=== PATIENT | female | born 1975 | race Caucasian/White ===

== ENCOUNTER 2017-12-11 10:01 | Inpatient (IN) | payer MEDICAID ==
[2017-12-11] VITALS (11 sets, daily range): BP systolic 112–154; BP diastolic 69–92
[~2017-12-11] VITALS: Ht 154.9 cm; Wt 78.6 kg
[2017-12-11] MEDS ORDERED: normal saline 1000ML IV soln IV ONE ×2 (10:30→11:25)
[2017-12-11] MEDS ORDERED: ipratropium/albuterol 3ml nebule NEB ONE (10:30)
[2017-12-11 10:48] LABS: HEMATOCRIT 34.1 % (35.0-45.0); MEAN CORPUSCULAR HEMOGLOBIN 23.3 PG (27.0-31.0); MEAN CORPUSCULAR HGB CONC 32.1 % (33.0-36.5); MEAN CORPUSCULAR VOLUME 72.6 FL (78-98); MEAN PLATELET VOLUME 8.1 FL (7.4-10.4); PLATELET COUNT 369 X10'3 (140-440); RED CELL DISTRIBUTION WIDTH 21.5 % (11.5-14.5); WHITE BLOOD COUNT 17.5 X10'3 (4.5-11.0)
[2017-12-11 10:58] LABS: INR 1.3 INR; PARTIAL THROMBOPLASTIN TIME 33 SECONDS (22-32); PROTHROMBIN TIME 12.9 SECONDS (9.0-12.0)
[2017-12-11 11:07] LABS: ANISOCYTOSIS 3+; MICROCYTOSIS 2+; PLATELET ESTIMATE NORMAL; TOTAL CELLS COUNTED 100
[2017-12-11 11:08] LABS: ACANTHOCYTES FEW; BURR CELLS 1+; POLYCHROMASIA FEW; TARGET CELLS FEW
[2017-12-11 11:11] LABS: ALANINE AMINOTRANSFERASE 23 U/L (12-78); ALBUMIN 2.2 G/DL (3.4-5.0); ALBUMIN/GLOBULIN RATIO 0.4 (1.1-1.5); ALKALINE PHOSPHATASE 139 IU/L (46-116); ANION GAP 17 (8-16); ASPARTATE AMINO TRANSFERASE 48 U/L (10-37); BILIRUBIN,TOTAL 1.2 MG/DL (0.1-1.0); BLOOD UREA NITROGEN 44 MG/DL (7-18); BUN/CREATININE RATIO 26.7 (6.6-38.0); CALCIUM 8.9 MG/DL (8.5-10.1); CHLORIDE 104 MMOL/L (99-107); CREATININE 1.65 MG/DL (0.40-0.90); GLUCOSE 77 MG/DL (70-104); POTASSIUM 4.4 MMOL/L (3.5-5.1); SODIUM 138 MMOL/L (135-145); TOTAL PROTEIN 7.1 G/DL (6.4-8.2); TROPONIN I < 0.04 NG/ML (0.0-0.05); eGFR 34 ML/MIN
[2017-12-11] MEDS ORDERED: normal saline 1000ML IV soln IVB ONE ×2 (11:20→13:30)
[2017-12-11] MEDS ORDERED: levoFLOXACIN-Levaquin 750MG/D5 150 ML IV STA (11:22)
[2017-12-11] MEDS ORDERED: azithromycin/NS 500mg/250ml 250 ML IV ONE (11:25)
[2017-12-11] MEDS ORDERED: methylPREDNISolone sod succ 125mg/2ml vial IV ONE (11:25)
[2017-12-11 11:56] LABS: ABG BASE EXCESS -12.7 mmol/L (-2.0-3.0); ABG HCO3 13.6 mmol/L (22.0-26.0); ABG OXYGEN SATURATION 86.7 % (95-98); ABG PCO2 (T) 32.3 mmHg (32.0-45.0); ABG PH (T) 7.241 (7.350-7.450); ABG PO2 (T) 61.9 mmHg (83-108); ALLEN'S TEST Positive; FCOHb 1.1 % (0.5-1.5); FLOW 15 L/min; FMetHb 0.1 % (0.3-1.12); FO2Hb 85.7 % (94-100); TOTAL HEMOGLOBIN 10.1 G/dl (12.0-16.0)
[2017-12-11] MEDS ORDERED: NO HOME MEDS (11:59)
[2017-12-11] MEDS ORDERED: LORazepam 2 mg/ml vial IV ONE ×2 (12:00→12:50)
[2017-12-11] MEDS ORDERED: propofol 1000mg/100ml bottle 100 ML IV ONE ×2 (13:16→17:54)
[2017-12-11] MEDS ORDERED: oseltamivir phos 75mg capsule PO ONE (13:35)
[2017-12-11] MEDS ORDERED: ondansetron/PF 4mg/2ml inj IV PRN (13:40)
[2017-12-11] MEDS ORDERED: cefTRIAXone 1g/NS 100ml IVPB 100 ML IV ONE (13:40)
[2017-12-11] MEDS ORDERED: morphine 4 MG/ML inj SYRINge IV PRN (13:40)
[2017-12-11] MEDS ORDERED: acetaminophen 325mg tablet PO PRN ×2 (13:40)
[2017-12-11] MEDS ORDERED: midazolam 2 mg/2 ml injection IV ONE ×2 (13:40→20:00)
[2017-12-11] MEDS: levoFLOXACIN-Levaquin 500mg/D5 100 ML IV SCH (13:40)
[2017-12-11] MEDS ORDERED: fentaNYL/PF 50MCG/1 ML 2ML syringe IV PRN ×3 (13:40→20:00)
[2017-12-11] MEDS ORDERED: potassium Cl 20 mEq SR tablet PO PRN ×2 (13:40)
[2017-12-11] MEDS ORDERED: ipratropium/albuterol 3ml nebule NEB PRN (13:40)
[2017-12-11] MEDS ORDERED: magnesium hydroxide 30ml (MOM) UD suspension PO PRN (13:40)
[2017-12-11 14:15] LABS: ABG BASE EXCESS -16.8 mmol/L (-2.0-3.0); ABG HCO3 15.7 mmol/L (22.0-26.0); ABG OXYGEN SATURATION 80.1 % (95-98); ABG PCO2 (T) 74.1 mmHg (32.0-45.0); ABG PH (T) 6.941 (7.350-7.450); ABG PO2 (T) 67.2 mmHg (83-108); FCOHb 0.8 % (0.5-1.5); FMetHb 0.2 % (0.3-1.12); FO2Hb 79.3 % (94-100); MINUTE VOLUME 6 L/min; PATIENT TEMPERATURE 36.7; PEEP 5 cm H2O; RESPIRATORY RATE 14 b/min; RESPIRATORY RATE (OBSERVED) 14 b/min; TIDAL VOLUME 450 mL; TOTAL HEMOGLOBIN 10.6 G/dl (12.0-16.0)
[2017-12-11] MEDS ORDERED: rocuronium 10mg/ml inj IV ONE (15:00)
[2017-12-11] MEDS ORDERED: etomidate 2mg/ml inj. ONE (15:00)
[2017-12-11] MEDS ORDERED: sod chloride 0.9% 10ml flush syringe IV ONE (15:00)
[2017-12-11 15:05] LABS: CLARITY,URINE CLEAR (Clear); COLOR,URINE YELLOW (Yellow); GLUCOSE, URINE NEGATIVE (Neg); KETONES,URINE NEGATIVE (Neg); LEUKOCYTE ESTERASE ,URINE NEGATIVE (Neg); NITRITES, URINE NEGATIVE (Neg); OCCULT BLOOD,URINE TRACE-INTACT (Neg); PH,URINE 5.5 (4.8-8.0); PROTEIN,URINE 30 mg/dl (Neg)
[2017-12-11 15:16] LABS: UA COLLECTION TYPE OTHER; URINE AMPHETAMINE SCREEN POSITIVE (Neg); URINE BARBITUATE SCREEN NEGATIVE (Neg); URINE BENZODIAZEPINES SCREEN NEGATIVE (Neg); URINE CANNABINOID SCREEN POSITIVE (Neg); URINE COCAINE SCREEN NEGATIVE (Neg); URINE METHADONE SCREEN NEGATIVE (Neg); URINE OPIATE SCREEN NEGATIVE (Neg); URINE PHENCYCLIDINE SCREEN NEGATIVE (Neg)
[2017-12-11 15:18] LABS: BACTERIA,URINE NONE SEEN /HPF (Neg); HYALINE CASTS 0-3 /LPF (NEGATIVE); MUCUS STRANDS FEW /LPF (Neg); RBC,URINE 0-2 /HPF (0-2); SQUAMOUS EPITHELIAL CELL,UR NONE SEEN /LPF (FEW); WBC,URINE NONE SEEN /HPF (0-4)
[2017-12-11] MEDS ORDERED: VECuronium br 10mg inj. IV ONE (16:35)
[2017-12-11] MEDS: normal saline 1000ml 1,000 ML IV SCH (16:45)
[2017-12-11 17:36] LABS: ABG BASE EXCESS -11.9 mmol/L (-2.0-3.0); ABG HCO3 17.7 mmol/L (22.0-26.0); ABG OXYGEN SATURATION 86.3 % (95-98); ABG PCO2 (T) 59.2 mmHg (32.0-45.0); ABG PH (T) 7.098 (7.350-7.450); ABG PO2 (T) 69.5 mmHg (83-108); FCOHb 1.1 % (0.5-1.5); FMetHb 0.2 % (0.3-1.12); FO2Hb 85.2 % (94-100); MINUTE VOLUME 9 L/min; PATIENT TEMPERATURE 37.8; PEEP 7 cm H2O; RESPIRATORY RATE 20 b/min; RESPIRATORY RATE (OBSERVED) 19 b/min; TIDAL VOLUME 450 mL; TOTAL HEMOGLOBIN 11.3 G/dl (12.0-16.0)
[2017-12-11] MEDS ORDERED: sodium bicarbonate (8.4%) 1 mEq/ml syringe IV ONE (17:55)
[2017-12-11 18:11] LABS: OXYGEN SATURATION (MIXED VEN) 66.1 % (60-80); PO2 MIXED VENOUS (TEMP COR) 49.4 mmHg (35-46)
[2017-12-11] MEDS ORDERED: midazolam 100mg in NS 100ml 100 ML IV PRN (20:00)
[2017-12-11 20:01] LABS: ABG BASE EXCESS -7.5 mmol/L (-2.0-3.0); ABG HCO3 20.5 mmol/L (22.0-26.0); ABG OXYGEN SATURATION 93.6 % (95-98); ABG PCO2 (T) 55.9 mmHg (32.0-45.0); ABG PH (T) 7.188 (7.350-7.450); ABG PO2 (T) 85.4 mmHg (83-108); FCOHb 1.1 % (0.5-1.5); FMetHb 0.1 % (0.3-1.12); FO2Hb 92.5 % (94-100); MINUTE VOLUME 10 L/min; PATIENT TEMPERATURE 38.1; PEEP 18 cm H2O; RESPIRATORY RATE 26 b/min; RESPIRATORY RATE (OBSERVED) 26 b/min; TIDAL VOLUME 350 mL
[2017-12-11] MEDS: furosemide 40mg/4ml inj IV PRN (20:15)
[2017-12-11] MEDS: midazolam 100mg in NS 100ml 100 ML IV PRN (20:40)
[2017-12-11] MEDS: FENTANYL-0.9 % NACL/PF 100 ML IV PRN (20:40)
[2017-12-11] MEDS: methylPREDNISolone sod succ 125mg/2ml vial IV SCH (21:17)
[2017-12-11] MEDS: pantoprazole 40 MG vial IV SCH (21:17)
[2017-12-11] MEDS ORDERED: dextrose 50%-water 50ml dispensing syringe IV ONE (21:24)
[2017-12-11 22:43] LABS: ALANINE AMINOTRANSFERASE 29 U/L (12-78); ALBUMIN 1.9 G/DL (3.4-5.0); ALBUMIN/GLOBULIN RATIO 0.4 (1.1-1.5); ALKALINE PHOSPHATASE 125 IU/L (46-116); ANION GAP 11 (8-16); ASPARTATE AMINO TRANSFERASE 53 U/L (10-37); BILIRUBIN,TOTAL 0.9 MG/DL (0.1-1.0); BLOOD UREA NITROGEN 42 MG/DL (7-18); BUN/CREATININE RATIO 37.8 (6.6-38.0); CALCIUM 7.8 MG/DL (8.5-10.1); CHLORIDE 110 MMOL/L (99-107); CREATININE 1.11 MG/DL (0.40-0.90); GLUCOSE 102 MG/DL (70-104); MAGNESIUM 1.9 MG/DL (1.5-2.4); SODIUM 142 MMOL/L (135-145); TOTAL CARBON DIOXIDE 20.6 MMOL/L (24-32); TOTAL PROTEIN 6.5 G/DL (6.4-8.2); eGFR 54 ML/MIN
[2017-12-11] MEDS ORDERED: vancomycin/NS 1 GM ADD-VANTAGE 250 ML IV ONE (23:45)
[2017-12-12] VITALS (24 sets, daily range): BP systolic 100–140; BP diastolic 60–85
[2017-12-12] MEDS: furosemide 40mg/4ml inj IV PRN ×2 (00:10→04:13)
[2017-12-12 02:06] LABS: OXYGEN SATURATION (MIXED VEN) 88.7 % (60-80); PO2 MIXED VENOUS (TEMP COR) 57.4 mmHg (35-46)
[2017-12-12] MEDS: midazolam 100mg in NS 100ml 100 ML IV PRN ×3 (02:39→23:28)
[2017-12-12] MEDS: methylPREDNISolone sod succ 125mg/2ml vial IV SCH ×4 (02:39→20:10)
[2017-12-12 02:53] LABS: INR 1.2 INR
[2017-12-12 02:56] LABS: BASOPHILS % (AUTO) 0.2 % (0-1); EOSINOPHILS # (AUTO) 0.3 X10'3 (0-0.9); EOSINOPHILS % (AUTO) 1.2 % (0-6); HEMATOCRIT 28.6 % (35.0-45.0); HEMOGLOBIN 9.1 g/dl (12.0-16.0); LYMPHOCYTES # (AUTO) 1.4 X10'3 (1.1-4.8); LYMPHOCYTES % (AUTO) 6.6 % (21-51); MEAN CORPUSCULAR HEMOGLOBIN 23.2 PG (27.0-31.0); MEAN CORPUSCULAR HGB CONC 31.8 % (33.0-36.5); MEAN CORPUSCULAR VOLUME 73.1 FL (78-98); MEAN PLATELET VOLUME 8.6 FL (7.4-10.4); MONOCYTES # (AUTO) 0.6 X10'3 (0-0.9); MONOCYTES % (AUTO) 2.8 % (2-12); NEUTROPHILS # (AUTO) 19.3 X10'3 (1.8-7.7); NEUTROPHILS % (AUTO) 89.2 % (42-75); PLATELET COUNT 353 X10'3 (140-440); RED BLOOD COUNT 3.91 X10'6 (4.20-5.60); RED CELL DISTRIBUTION WIDTH 19.4 % (11.5-14.5); WHITE BLOOD COUNT 21.6 X10'3 (4.5-11.0)
[2017-12-12] MEDS: normal saline 1000ml 1,000 ML IV SCH ×2 (02:59→17:08)
[2017-12-12 03:18] LABS: ALBUMIN 1.8 G/DL (3.4-5.0); ANION GAP 13 (8-16); BLOOD UREA NITROGEN 42 MG/DL (7-18); BUN/CREATININE RATIO 33.6 (6.6-38.0); CALCIUM 7.8 MG/DL (8.5-10.1); CHLORIDE 111 MMOL/L (99-107); CREATININE 1.25 MG/DL (0.40-0.90); GLUCOSE 87 MG/DL (70-104); MAGNESIUM 1.8 MG/DL (1.5-2.4); POTASSIUM 4.5 MMOL/L (3.5-5.1); SODIUM 144 MMOL/L (135-145); TOTAL CARBON DIOXIDE 20.4 MMOL/L (24-32); eGFR 47 ML/MIN
[2017-12-12 03:46] LABS: ABG OXYGEN SATURATION 99.3 % (95-98); ABG PCO2 (T) 37.6 mmHg (32.0-45.0); ABG PH (T) 7.364 (7.350-7.450); ABG PO2 (T) 157.5 mmHg (83-108); FCOHb 0.6 % (0.5-1.5); FMetHb 0.1 % (0.3-1.12); FO2Hb 98.6 % (94-100); MINUTE VOLUME 10 L/min; PATIENT TEMPERATURE 36.9; PEEP 14 cm H2O; RESPIRATORY RATE 26 b/min; RESPIRATORY RATE (OBSERVED) 26 b/min; TIDAL VOLUME 350 mL; TOTAL HEMOGLOBIN 9.6 G/dl (12.0-16.0)
[2017-12-12 04:55] LABS: ANISOCYTOSIS 2+; PLATELET ESTIMATE NORMAL; TOTAL CELLS COUNTED 100
[2017-12-12 04:56] LABS: MICROCYTOSIS 1+
[2017-12-12 04:57] LABS: BURR CELLS FEW; POLYCHROMASIA 1+; TARGET CELLS FEW
[2017-12-12] MEDS: pantoprazole 40 MG vial IV SCH ×2 (07:53→20:10)
[2017-12-12] MEDS: levoFLOXACIN-Levaquin 500mg/D5 100 ML IV SCH (07:53)
[2017-12-12] MEDS: enoxaparin 40mg/0.4ml syringe SQ SCH (07:54)
[2017-12-12] MEDS ORDERED: pneumococcal 23-VAL P-sac vacc 25 mcg/0.5ml vial IMVAC ONE (10:00)
[2017-12-12 10:21] LABS: ABG BASE EXCESS -3.1 mmol/L (-2.0-3.0); ABG HCO3 21.2 mmol/L (22.0-26.0); ABG OXYGEN SATURATION 97.4 % (95-98); ABG PCO2 (T) 34.7 mmHg (32.0-45.0); ABG PH (T) 7.403 (7.350-7.450); ABG PO2 (T) 96.7 mmHg (83-108); FCOHb 0.5 % (0.5-1.5); FMetHb 0.3 % (0.3-1.12); FO2Hb 96.6 % (94-100); MINUTE VOLUME 11 L/min; PEEP 10 cm H2O; RESPIRATORY RATE 26 b/min; RESPIRATORY RATE (OBSERVED) 26 b/min; TIDAL VOLUME 350 mL; TOTAL HEMOGLOBIN 9.5 G/dl (12.0-16.0)
[2017-12-12] MEDS: vancomycin inj 1,250 MG in normal saline 250ml IV soln 250 ML IV SCH (11:57)
[2017-12-12] MEDS: FENTANYL-0.9 % NACL/PF 100 ML IV PRN (12:46)
[2017-12-12 13:51] LABS: OXYGEN SATURATION (MIXED VEN) 73.6 % (60-80); PO2 MIXED VENOUS (TEMP COR) 41.2 mmHg (35-46)
[2017-12-12] MEDS: mineral oil/petrolatum ophthal oint EACHEYE SCH ×2 (16:27→20:10)
[2017-12-12 19:35] LABS: OXYGEN SATURATION (MIXED VEN) 71.9 % (60-80); PO2 MIXED VENOUS (TEMP COR) 42.8 mmHg (35-46)
[2017-12-12 19:41] LABS: ABG BASE EXCESS -3.3 mmol/L (-2.0-3.0); ABG HCO3 21.3 mmol/L (22.0-26.0); ABG OXYGEN SATURATION 93.4 % (95-98); ABG PCO2 (T) 36.7 mmHg (32.0-45.0); ABG PH (T) 7.382 (7.350-7.450); ABG PO2 (T) 74.8 mmHg (83-108); FCOHb 0.4 % (0.5-1.5); FMetHb 0.2 % (0.3-1.12); FO2Hb 92.8 % (94-100); MINUTE VOLUME 10 L/min; PATIENT TEMPERATURE 37.2; PEEP 10 cm H2O; RESPIRATORY RATE 26 b/min; RESPIRATORY RATE (OBSERVED) 26 b/min; TIDAL VOLUME 350 mL; TOTAL HEMOGLOBIN 9.3 G/dl (12.0-16.0)
[2017-12-12] MEDS ORDERED: mineral oil/petrolatum ophthal oint EACHEYE SCH (20:00)
[2017-12-13] VITALS (24 sets, daily range): BP systolic 112–140; BP diastolic 65–84
[2017-12-13] MEDS: vancomycin inj 1,250 MG in normal saline 250ml IV soln 250 ML IV SCH (00:31)
[2017-12-13] MEDS: FENTANYL-0.9 % NACL/PF 100 ML IV PRN ×3 (00:32→17:21)
[2017-12-13] MEDS: mineral oil/petrolatum ophthal oint EACHEYE SCH ×4 (02:20→20:59)
[2017-12-13] MEDS: methylPREDNISolone sod succ 125mg/2ml vial IV SCH ×4 (02:20→20:59)
[2017-12-13 03:25] LABS: HEMOGLOBIN 8.2 g/dl (12.0-16.0); MEAN CORPUSCULAR HGB CONC 31.4 % (33.0-36.5); MEAN CORPUSCULAR VOLUME 73.2 FL (78-98); MEAN PLATELET VOLUME 8.4 FL (7.4-10.4); PLATELET COUNT 258 X10'3 (140-440); RED BLOOD COUNT 3.55 X10'6 (4.20-5.60); RED CELL DISTRIBUTION WIDTH 21.8 % (11.5-14.5); WHITE BLOOD COUNT 24.1 X10'3 (4.5-11.0)
[2017-12-13 03:35] LABS: ALBUMIN 1.6 G/DL (3.4-5.0); ANION GAP 10 (8-16); BLOOD UREA NITROGEN 52 MG/DL (7-18); BUN/CREATININE RATIO 45.6 (6.6-38.0); CALCIUM 8.7 MG/DL (8.5-10.1); CHLORIDE 114 MMOL/L (99-107); CREATININE 1.14 MG/DL (0.40-0.90); GLUCOSE 95 MG/DL (70-104); MAGNESIUM 2.3 MG/DL (1.5-2.4); POTASSIUM 4.3 MMOL/L (3.5-5.1); SODIUM 148 MMOL/L (135-145); TOTAL CARBON DIOXIDE 23.6 MMOL/L (24-32); eGFR 52 ML/MIN
[2017-12-13 03:50] LABS: ABG BASE EXCESS -2.4 mmol/L (-2.0-3.0); ABG HCO3 21.7 mmol/L (22.0-26.0); ABG OXYGEN SATURATION 96.5 % (95-98); ABG PCO2 (T) 33.9 mmHg (32.0-45.0); ABG PH (T) 7.423 (7.350-7.450); ABG PO2 (T) 88.2 mmHg (83-108); FCOHb 0.5 % (0.5-1.5); FMetHb 0.1 % (0.3-1.12); FO2Hb 95.9 % (94-100); MINUTE VOLUME 10 L/min; PATIENT TEMPERATURE 36.7; PEEP 10 cm H2O; RESPIRATORY RATE 26 b/min; RESPIRATORY RATE (OBSERVED) 26 b/min; TIDAL VOLUME 350 mL
[2017-12-13 03:55] LABS: OXYGEN SATURATION (MIXED VEN) 68.5 % (60-80); PO2 MIXED VENOUS (TEMP COR) 37.4 mmHg (35-46)
[2017-12-13 04:05] LABS: ANISOCYTOSIS 3+; BURR CELLS FEW; INR 1.1 INR; MICROCYTOSIS 1+; NUCLEATED RED BLOOD CELLS 1 /100WBC (0-0); PLATELET ESTIMATE NORMAL; PROTHROMBIN TIME 10.9 SECONDS (9.0-12.0); TARGET CELLS FEW; TOTAL CELLS COUNTED 100
[2017-12-13] MEDS: pantoprazole 40 MG vial IV SCH (07:36)
[2017-12-13] MEDS: levoFLOXACIN-Levaquin 500mg/D5 100 ML IV SCH (07:36)
[2017-12-13] MEDS: enoxaparin 40mg/0.4ml syringe SQ SCH (07:36)
[2017-12-13] MEDS: midazolam 100mg in NS 100ml 100 ML IV PRN ×2 (08:44→17:21)
[2017-12-13 09:20] LABS: ABG BASE EXCESS -1.2 mmol/L (-2.0-3.0); ABG HCO3 23.3 mmol/L (22.0-26.0); ABG PCO2 (T) 38.1 mmHg (32.0-45.0); ABG PH (T) 7.405 (7.350-7.450); ABG PO2 (T) 68.3 mmHg (83-108); FCOHb 0.5 % (0.5-1.5); FMetHb 0.2 % (0.3-1.12); FO2Hb 91.4 % (94-100); PEEP 10 cm H2O; RESPIRATORY RATE 26 b/min; TIDAL VOLUME 350 mL; TOTAL HEMOGLOBIN 8.9 G/dl (12.0-16.0)
[2017-12-13] MEDS ORDERED: FLU VACC QS2017-18 36MOS UP/PF 60 MCG/0.5 ML SYRINGE IMVAC ONE (10:00)
[2017-12-13] MEDS: lactobacillus rhamnosus 10,000 MMU CELLS/CAPSULE PO SCH (20:59)
[2017-12-13] MEDS: normal saline 1000ml 1,000 ML IV SCH (21:22)
[2017-12-13] MEDS ORDERED: VANCOMYCIN LEVEL IV ONE (23:30)
[2017-12-14] VITALS (24 sets, daily range): BP systolic 103–143; BP diastolic 64–92
[2017-12-14] MEDS: FENTANYL-0.9 % NACL/PF 100 ML IV PRN ×3 (01:30→18:03)
[2017-12-14] MEDS: midazolam 100mg in NS 100ml 100 ML IV PRN ×3 (01:31→18:04)
[2017-12-14] MEDS: mineral oil/petrolatum ophthal oint EACHEYE SCH ×4 (02:58→20:54)
[2017-12-14 03:05] LABS: HEMATOCRIT 26.1 % (35.0-45.0); HEMOGLOBIN 8.2 g/dl (12.0-16.0); MEAN CORPUSCULAR HEMOGLOBIN 22.9 PG (27.0-31.0); MEAN CORPUSCULAR HGB CONC 31.4 % (33.0-36.5); MEAN CORPUSCULAR VOLUME 73.1 FL (78-98); MEAN PLATELET VOLUME 8.4 FL (7.4-10.4); PLATELET COUNT 241 X10'3 (140-440); RED BLOOD COUNT 3.58 X10'6 (4.20-5.60); RED CELL DISTRIBUTION WIDTH 21.9 % (11.5-14.5); WHITE BLOOD COUNT 23.4 X10'3 (4.5-11.0)
[2017-12-14 03:10] LABS: ABG BASE EXCESS -2.6 mmol/L (-2.0-3.0); ABG HCO3 21.4 mmol/L (22.0-26.0); ABG OXYGEN SATURATION 96.6 % (95-98); ABG PCO2 (T) 33.2 mmHg (32.0-45.0); ABG PH (T) 7.426 (7.350-7.450); ABG PO2 (T) 91.7 mmHg (83-108); FCOHb 0.1 % (0.5-1.5); FMetHb 0.1 % (0.3-1.12); FO2Hb 96.4 % (94-100); MINUTE VOLUME 10 L/min; PATIENT TEMPERATURE 36.8; PEEP 10 cm H2O; RESPIRATORY RATE 26 b/min; RESPIRATORY RATE (OBSERVED) 26 b/min; TIDAL VOLUME 350 mL; TOTAL HEMOGLOBIN 9.1 G/dl (12.0-16.0)
[2017-12-14 03:21] LABS: PROTHROMBIN TIME 10.4 SECONDS (9.0-12.0)
[2017-12-14 03:25] LABS: ALBUMIN 1.6 G/DL (3.4-5.0); ANION GAP 10 (8-16); BLOOD UREA NITROGEN 64 MG/DL (7-18); BUN/CREATININE RATIO 53.3 (6.6-38.0); CALCIUM 8.7 MG/DL (8.5-10.1); CHLORIDE 116 MMOL/L (99-107); GLUCOSE 124 MG/DL (70-104); MAGNESIUM 2.6 MG/DL (1.5-2.4); PREALBUMIN 6.8 MG/DL (19-36); SODIUM 149 MMOL/L (135-145); TOTAL CARBON DIOXIDE 22.9 MMOL/L (24-32); eGFR 49 ML/MIN
[2017-12-14 04:00] LABS: NUCLEATED RED BLOOD CELLS 2 /100WBC (0-0); TOTAL CELLS COUNTED 100
[2017-12-14 04:01] LABS: ANISOCYTOSIS 3+; MICROCYTOSIS 1+; PLATELET ESTIMATE NORMAL; TARGET CELLS FEW
[2017-12-14] MEDS: lactobacillus rhamnosus 10,000 MMU CELLS/CAPSULE PO SCH ×2 (07:15→20:54)
[2017-12-14] MEDS: methylPREDNISolone sod succ 125mg/2ml vial IV SCH (07:17)
[2017-12-14] MEDS: pantoprazole 40 MG vial IV SCH (07:17)
[2017-12-14] MEDS: enoxaparin 40mg/0.4ml syringe SQ SCH (07:18)
[2017-12-14] MEDS: levoFLOXACIN-Levaquin 500mg/D5 100 ML IV SCH (07:19)
[2017-12-14 10:05] LABS: PO2 MIXED VENOUS (TEMP COR) 37.3 mmHg (35-46)
[2017-12-14] MEDS ORDERED: furosemide 40mg/4ml inj IV ONE (10:50)
[2017-12-14 11:28] LABS: FERRITIN 188 NG/ML (8-252)
[2017-12-14 15:05] LABS: MAGNESIUM 2.4 MG/DL (1.5-2.4); PHOSPHORUS 5.3 MG/DL (2.3-4.5); POTASSIUM 4.8 MMOL/L (3.5-5.1)
[2017-12-14] MEDS: methylPREDNISolone sod succ/PF 40mg inj. IV SCH (20:54)
[2017-12-15] VITALS (22 sets, daily range): BP systolic 116–181; BP diastolic 74–98
[2017-12-15] MEDS: midazolam 100mg in NS 100ml 100 ML IV PRN (01:08)
[2017-12-15] MEDS: FENTANYL-0.9 % NACL/PF 100 ML IV PRN (01:08)
[2017-12-15] MEDS: mineral oil/petrolatum ophthal oint EACHEYE SCH ×4 (02:00→20:50)
[2017-12-15 03:36] LABS: ABG BASE EXCESS -3.5 mmol/L (-2.0-3.0); ABG HCO3 20.1 mmol/L (22.0-26.0); ABG PCO2 (T) 31.9 mmHg (32.0-45.0); ABG PO2 (T) 93.5 mmHg (83-108); ALLEN'S TEST Positive; FCOHb 0.4 % (0.5-1.5); FMetHb 0.1 % (0.3-1.12); FO2Hb 95.5 % (94-100); MINUTE VOLUME 10 L/min; PATIENT TEMPERATURE 37.9; PEEP 8 cm H2O; RESPIRATORY RATE 26 b/min; RESPIRATORY RATE (OBSERVED) 26 b/min; TIDAL VOLUME 350 mL; TOTAL HEMOGLOBIN 9.1 G/dl (12.0-16.0)
[2017-12-15 05:29] LABS: BASOPHILS % (AUTO) 0 % (0-1); EOSINOPHILS % (AUTO) 0 % (0-6); HEMOGLOBIN 8.1 g/dl (12.0-16.0); LYMPHOCYTES # (AUTO) 1.3 X10'3 (1.1-4.8); LYMPHOCYTES % (AUTO) 6.9 % (21-51); MEAN CORPUSCULAR HEMOGLOBIN 22.9 PG (27.0-31.0); MEAN CORPUSCULAR HGB CONC 31.4 % (33.0-36.5); MEAN CORPUSCULAR VOLUME 73.1 FL (78-98); MONOCYTES # (AUTO) 0.2 X10'3 (0-0.9); MONOCYTES % (AUTO) 1.1 % (2-12); NEUTROPHILS # (AUTO) 17.7 X10'3 (1.8-7.7); PLATELET COUNT 244 X10'3 (140-440); RED BLOOD COUNT 3.55 X10'6 (4.20-5.60); RED CELL DISTRIBUTION WIDTH 21.7 % (11.5-14.5); WHITE BLOOD COUNT 19.3 X10'3 (4.5-11.0)
[2017-12-15 05:42] LABS: ALBUMIN 1.6 G/DL (3.4-5.0); ANION GAP 12 (8-16); BLOOD UREA NITROGEN 80 MG/DL (7-18); CALCIUM 8.1 MG/DL (8.5-10.1); CHLORIDE 114 MMOL/L (99-107); CREATININE 1.29 MG/DL (0.40-0.90); GLUCOSE 107 MG/DL (70-104); MAGNESIUM 2.6 MG/DL (1.5-2.4); SODIUM 149 MMOL/L (135-145); eGFR 45 ML/MIN
[2017-12-15 05:58] LABS: PROTHROMBIN TIME 10.7 SECONDS (9.0-12.0)
[2017-12-15 07:54] LABS: BANDS% (MANUAL) 7 % (0-10); LYMPHOCYTES % (MANUAL) 7 % (21-51); METAMYLEOCYTES% (MANUAL) 5 % (0-0); MONOCYTES % (MANUAL) 3 % (2-12); MYELOCYTES % (MANUAL) 2 % (0-0); NEUTROPHILS % (MANUAL) 76 % (42-75); TOTAL CELLS COUNTED 100
[2017-12-15 07:55] LABS: ANISOCYTOSIS 3+; NUCLEATED RED BLOOD CELLS 13 /100WBC (0-0); PLATELET ESTIMATE NORMAL
[2017-12-15 07:56] LABS: TARGET CELLS FEW
[2017-12-15] MEDS ORDERED: furosemide 40mg/4ml inj IV ONE (08:30)
[2017-12-15] MEDS: methylPREDNISolone sod succ/PF 40mg inj. IV SCH ×2 (08:34→20:50)
[2017-12-15] MEDS: pantoprazole 40 MG vial IV SCH (08:35)
[2017-12-15] MEDS: levoFLOXACIN-Levaquin 500mg/D5 100 ML IV SCH (08:37)
[2017-12-15] MEDS: lactobacillus rhamnosus 10,000 MMU CELLS/CAPSULE PO SCH ×2 (08:38→20:50)
[2017-12-15] MEDS: enoxaparin 40mg/0.4ml syringe SQ SCH (08:39)
[2017-12-15] MEDS ORDERED: bisacodyl 10mg suppository rectal RC PRN (11:00)
[2017-12-15] MEDS: metoclopramide 10mg/10 ml UD oral solution PO SCH ×2 (14:29→20:50)
[2017-12-15] MEDS: docusate sodium 100mg/10ml UD cup PO SCH (20:50)
[2017-12-15] MEDS: normal saline 1000ml 1,000 ML IV SCH (20:51)
[2017-12-16] VITALS (24 sets, daily range): BP systolic 101–167; BP diastolic 54–106
[2017-12-16] MEDS: metoclopramide 10mg/10 ml UD oral solution PO SCH ×2 (02:00→08:21)
[2017-12-16] MEDS: mineral oil/petrolatum ophthal oint EACHEYE SCH ×4 (02:00→20:15)
[2017-12-16 02:55] LABS: BASOPHILS % (AUTO) 0.1 % (0-1); EOSINOPHILS # (AUTO) 0.1 X10'3 (0-0.9); EOSINOPHILS % (AUTO) 0.3 % (0-6); HEMATOCRIT 27.1 % (35.0-45.0); HEMOGLOBIN 8.7 g/dl (12.0-16.0); LYMPHOCYTES # (AUTO) 3.1 X10'3 (1.1-4.8); LYMPHOCYTES % (AUTO) 12.2 % (21-51); MEAN CORPUSCULAR HEMOGLOBIN 23.1 PG (27.0-31.0); MEAN CORPUSCULAR VOLUME 72.2 FL (78-98); MEAN PLATELET VOLUME 8.2 FL (7.4-10.4); MONOCYTES # (AUTO) 0.4 X10'3 (0-0.9); MONOCYTES % (AUTO) 1.4 % (2-12); PLATELET COUNT 261 X10'3 (140-440); RED BLOOD COUNT 3.75 X10'6 (4.20-5.60); RED CELL DISTRIBUTION WIDTH 19.8 % (11.5-14.5)
[2017-12-16 02:59] LABS: INR 1.1 INR; PROTHROMBIN TIME 11.2 SECONDS (9.0-12.0)
[2017-12-16 03:01] LABS: ALBUMIN 1.7 G/DL (3.4-5.0); ANION GAP 7 (8-16); BLOOD UREA NITROGEN 58 MG/DL (7-18); BUN/CREATININE RATIO 62.4 (6.6-38.0); CALCIUM 8.2 MG/DL (8.5-10.1); CHLORIDE 115 MMOL/L (99-107); CREATININE 0.93 MG/DL (0.40-0.90); GLUCOSE 101 MG/DL (70-104); MAGNESIUM 2.2 MG/DL (1.5-2.4); POTASSIUM 3.9 MMOL/L (3.5-5.1); SODIUM 149 MMOL/L (135-145); TOTAL CARBON DIOXIDE 26.8 MMOL/L (24-32); eGFR 66 ML/MIN
[2017-12-16 03:06] LABS: WHITE BLOOD COUNT 25.6 X10'3 (4.5-11.0)
[2017-12-16 03:31] LABS: ABG OXYGEN SATURATION 88.7 % (95-98); ABG PCO2 (T) 37.2 mmHg (32.0-45.0); ABG PO2 (T) 63.8 mmHg (83-108); ALLEN'S TEST Positive; FCOHb 0.5 % (0.5-1.5); FMetHb 0.1 % (0.3-1.12); FO2Hb 88.2 % (94-100); PATIENT TEMPERATURE 37.3; PEEP 5 cm H2O; RESPIRATORY RATE 26 b/min; RESPIRATORY RATE (OBSERVED) 28 b/min; TIDAL VOLUME 350 mL; TOTAL HEMOGLOBIN 9.6 G/dl (12.0-16.0)
[2017-12-16] MEDS: FENTANYL-0.9 % NACL/PF 100 ML IV PRN (03:41)
[2017-12-16 04:27] LABS: NUCLEATED RED BLOOD CELLS 3 /100WBC (0-0); TOTAL CELLS COUNTED 100
[2017-12-16 04:28] LABS: ANISOCYTOSIS 2+; PLATELET ESTIMATE NORMAL
[2017-12-16 04:29] LABS: HYPOCHROMASIA 1+; POIKILOCYTOSIS 1+; POLYCHROMASIA 1+
[2017-12-16] MEDS: docusate sodium 100mg/10ml UD cup PO SCH ×2 (08:21→20:15)
[2017-12-16] MEDS: pantoprazole 40 MG vial IV SCH (08:21)
[2017-12-16] MEDS: methylPREDNISolone sod succ/PF 40mg inj. IV SCH ×2 (08:21→20:14)
[2017-12-16] MEDS: lactobacillus rhamnosus 10,000 MMU CELLS/CAPSULE PO SCH ×2 (08:21→20:15)
[2017-12-16] MEDS: enoxaparin 40mg/0.4ml syringe SQ SCH (08:22)
[2017-12-16] MEDS: FLU VACC QS2017-18 36MOS UP/PF 60 MCG/0.5 ML SYRINGE IMVAC ONE ×2 (08:25→14:41)
[2017-12-16] MEDS: levoFLOXACIN-Levaquin 500mg/D5 100 ML IV SCH (08:26)
[2017-12-16] MEDS ORDERED: linezolid 600mg/300ml PREMIX 300 ML IV ONE (09:05)
[2017-12-16] MEDS ORDERED: furosemide 40mg/4ml inj IV ONE (09:10)
[2017-12-16] MEDS ORDERED: morphine 4 MG/ML inj SYRINge IV PRN (09:10)
[2017-12-16 09:29] LABS: CLARITY,URINE SLIGHTLY CLOUDY (Clear); COLOR,URINE YELLOW (Yellow); GLUCOSE, URINE NEGATIVE (Neg); KETONES,URINE NEGATIVE (Neg); LEUKOCYTE ESTERASE ,URINE NEGATIVE (Neg); NITRITES, URINE NEGATIVE (Neg); OCCULT BLOOD,URINE LARGE (Neg); PROTEIN,URINE NEGATIVE (Neg); UROBILINOGEN,URINE 0.2 E.U/dL (0.2-1.0)
[2017-12-16 09:40] LABS: UA COLLECTION TYPE FOLEY CATH
[2017-12-16 09:45] LABS: SQUAMOUS EPITHELIAL CELL,UR FEW /LPF (FEW)
[2017-12-16 09:46] LABS: BACTERIA,URINE FEW /HPF (Neg); RBC,URINE 20-50 /HPF (0-2); WBC,URINE 0-4 /HPF (0-4)
[2017-12-16 10:49] LABS: % IRON SATURATION 18 % (11-46); IRON 57 UG/DL (49-151); TOTAL IRON BINDING CAPACITY 324 UG/DL (259-388)
[2017-12-16 10:55] LABS: FERRITIN 109 NG/ML (8-252)
[2017-12-16] MEDS: midazolam 100mg in NS 100ml 100 ML IV PRN ×2 (11:05→19:26)
[2017-12-16] MEDS ORDERED: magnesium citrate 296ml oral solution PO ONE (14:00)
[2017-12-16] MEDS: morphine 4 MG/ML inj SYRINge IV PRN ×4 (14:40→22:41)
[2017-12-16] MEDS: cefepime 1GM/NS ADD-VANTAGE 100 ML IV SCH (16:38)
[2017-12-16] MEDS: normal saline 1000ml 1,000 ML IV SCH (19:26)
[2017-12-16] MEDS: linezolid 600mg/300ml PREMIX 300 ML IV SCH (20:15)
[2017-12-17] VITALS (24 sets, daily range): BP systolic 104–166; BP diastolic 70–95
[2017-12-17] MEDS: cefepime 1GM/NS ADD-VANTAGE 100 ML IV SCH ×3 (00:41→16:07)
[2017-12-17] MEDS: morphine 4 MG/ML inj SYRINge IV PRN ×3 (01:48→19:15)
[2017-12-17] MEDS: mineral oil/petrolatum ophthal oint EACHEYE SCH ×4 (01:48→19:12)
[2017-12-17 02:36] LABS: ABG BASE EXCESS 1.6 mmol/L (-2.0-3.0); ABG OXYGEN SATURATION 93.7 % (95-98); ABG PCO2 (T) 32.8 mmHg (32.0-45.0); ABG PH (T) 7.496 (7.350-7.450); ALLEN'S TEST Positive; FCOHb 0.5 % (0.5-1.5); FMetHb 0.1 % (0.3-1.12); FO2Hb 93.1 % (94-100); MINUTE VOLUME 10 L/min; PEEP 8 cm H2O; RESPIRATORY RATE 26 b/min; RESPIRATORY RATE (OBSERVED) 26 b/min; TIDAL VOLUME 350 mL; TOTAL HEMOGLOBIN 8.6 G/dl (12.0-16.0)
[2017-12-17] MEDS: midazolam 100mg in NS 100ml 100 ML IV PRN ×2 (03:58→17:58)
[2017-12-17 05:07] LABS: BASOPHILS % (AUTO) 0.2 % (0-1); EOSINOPHILS # (AUTO) 0.5 X10'3 (0-0.9); HEMATOCRIT 25.4 % (35.0-45.0); LYMPHOCYTES # (AUTO) 3.2 X10'3 (1.1-4.8); LYMPHOCYTES % (AUTO) 19.9 % (21-51); MEAN CORPUSCULAR HEMOGLOBIN 22.8 PG (27.0-31.0); MEAN CORPUSCULAR HGB CONC 31.4 % (33.0-36.5); MEAN CORPUSCULAR VOLUME 72.6 FL (78-98); MEAN PLATELET VOLUME 8.2 FL (7.4-10.4); MONOCYTES # (AUTO) 0.5 X10'3 (0-0.9); MONOCYTES % (AUTO) 2.9 % (2-12); PLATELET COUNT 206 X10'3 (140-440); RED CELL DISTRIBUTION WIDTH 21.3 % (11.5-14.5); WHITE BLOOD COUNT 16.1 X10'3 (4.5-11.0)
[2017-12-17 05:17] LABS: ALBUMIN 1.8 G/DL (3.4-5.0); ANION GAP 10 (8-16); BLOOD UREA NITROGEN 41 MG/DL (7-18); BUN/CREATININE RATIO 60.3 (6.6-38.0); CALCIUM 8.1 MG/DL (8.5-10.1); CHLORIDE 110 MMOL/L (99-107); CREATININE 0.68 MG/DL (0.40-0.90); GLUCOSE 96 MG/DL (70-104); MAGNESIUM 1.9 MG/DL (1.5-2.4); POTASSIUM 3.5 MMOL/L (3.5-5.1); SODIUM 146 MMOL/L (135-145); TOTAL CARBON DIOXIDE 26.5 MMOL/L (24-32); eGFR > 90 ML/MIN
[2017-12-17 05:18] LABS: PROTHROMBIN TIME 10.8 SECONDS (9.0-12.0)
[2017-12-17 06:44] LABS: TOTAL CELLS COUNTED 100
[2017-12-17 06:46] LABS: ANISOCYTOSIS 2+; HYPOCHROMASIA 1+; PLATELET ESTIMATE NORMAL; POLYCHROMASIA 1+
[2017-12-17 06:47] LABS: MICROCYTOSIS 1+; TARGET CELLS 1+
[2017-12-17 06:48] LABS: LARGE PLATELETS FEW; SPHEROCYTES 1+
[2017-12-17 06:49] LABS: NUCLEATED RED BLOOD CELLS 2 /100WBC (0-0)
[2017-12-17] MEDS: docusate sodium 100mg/10ml UD cup PO SCH ×2 (07:46→19:12)
[2017-12-17] MEDS: methylPREDNISolone sod succ/PF 40mg inj. IV SCH ×2 (07:46→19:12)
[2017-12-17] MEDS: pantoprazole 40 MG vial IV SCH (07:46)
[2017-12-17] MEDS: lactobacillus rhamnosus 10,000 MMU CELLS/CAPSULE PO SCH ×2 (07:46→19:12)
[2017-12-17] MEDS: enoxaparin 40mg/0.4ml syringe SQ SCH (07:47)
[2017-12-17] MEDS ORDERED: furosemide 40mg/4ml inj IV SCH (08:00)
[2017-12-17] MEDS: linezolid 600mg/300ml PREMIX 300 ML IV SCH ×2 (08:39→19:12)
[2017-12-17] MEDS ORDERED: sodium ferric gluc complex inj 25 MG in normal saline 50ml IV soln 48 ML IV ONE (08:50)
[2017-12-17] MEDS: furosemide 40mg/4ml inj IV SCH (16:07)
[2017-12-17] MEDS: normal saline 1000ml 1,000 ML IV SCH (21:22)
[2017-12-18] VITALS (24 sets, daily range): BP systolic 110–154; BP diastolic 63–93
[2017-12-18] MEDS: furosemide 40mg/4ml inj IV SCH ×3 (00:19→16:49)
[2017-12-18] MEDS: cefepime 1GM/NS ADD-VANTAGE 100 ML IV SCH ×3 (00:20→16:49)
[2017-12-18] MEDS: morphine 4 MG/ML inj SYRINge IV PRN ×2 (00:20→04:21)
[2017-12-18] MEDS: mineral oil/petrolatum ophthal oint EACHEYE SCH ×3 (02:11→08:00)
[2017-12-18 03:26] LABS: ABG BASE EXCESS 5.5 mmol/L (-2.0-3.0); ABG HCO3 28.1 mmol/L (22.0-26.0); ABG OXYGEN SATURATION 92.1 % (95-98); ABG PCO2 (T) 33.4 mmHg (32.0-45.0); ABG PH (T) 7.543 (7.350-7.450); ABG PO2 (T) 64.5 mmHg (83-108); ALLEN'S TEST Positive; FCOHb 0.3 % (0.5-1.5); FMetHb 0.3 % (0.3-1.12); FO2Hb 91.5 % (94-100); PEEP 5 cm H2O; RESPIRATORY RATE 26 b/min; RESPIRATORY RATE (OBSERVED) 30 b/min; TIDAL VOLUME 350 mL; TOTAL HEMOGLOBIN 9.7 G/dl (12.0-16.0)
[2017-12-18] MEDS: midazolam 100mg in NS 100ml 100 ML IV PRN (04:21)
[2017-12-18 05:33] LABS: BASOPHILS % (AUTO) 0.2 % (0-1); EOSINOPHILS # (AUTO) 0.5 X10'3 (0-0.9); EOSINOPHILS % (AUTO) 2.5 % (0-6); LYMPHOCYTES # (AUTO) 2.4 X10'3 (1.1-4.8); LYMPHOCYTES % (AUTO) 11.9 % (21-51); MEAN CORPUSCULAR HEMOGLOBIN 23.1 PG (27.0-31.0); MEAN PLATELET VOLUME 8.3 FL (7.4-10.4); MONOCYTES # (AUTO) 0.7 X10'3 (0-0.9); MONOCYTES % (AUTO) 3.5 % (2-12); NEUTROPHILS # (AUTO) 16.3 X10'3 (1.8-7.7); NEUTROPHILS % (AUTO) 81.9 % (42-75); PLATELET COUNT 232 X10'3 (140-440); RED BLOOD COUNT 3.89 X10'6 (4.20-5.60); RED CELL DISTRIBUTION WIDTH 20.7 % (11.5-14.5)
[2017-12-18 05:40] LABS: PROTHROMBIN TIME 10.3 SECONDS (9.0-12.0)
[2017-12-18 05:54] LABS: ALBUMIN 2.1 G/DL (3.4-5.0); ANION GAP 8 (8-16); BLOOD UREA NITROGEN 40 MG/DL (7-18); CALCIUM 8.5 MG/DL (8.5-10.1); CHLORIDE 104 MMOL/L (99-107); CREATININE 0.69 MG/DL (0.40-0.90); GLUCOSE 91 MG/DL (70-104); MAGNESIUM 2.1 MG/DL (1.5-2.4); POTASSIUM 3.9 MMOL/L (3.5-5.1); SODIUM 141 MMOL/L (135-145); TOTAL CARBON DIOXIDE 28.8 MMOL/L (24-32); eGFR > 90 ML/MIN
[2017-12-18] MEDS: pantoprazole 40 MG vial IV SCH (07:27)
[2017-12-18] MEDS: methylPREDNISolone sod succ/PF 40mg inj. IV SCH ×2 (07:27→21:50)
[2017-12-18] MEDS: enoxaparin 40mg/0.4ml syringe SQ SCH (07:27)
[2017-12-18] MEDS: docusate sodium 100mg/10ml UD cup PO SCH ×2 (07:28→21:50)
[2017-12-18] MEDS: lactobacillus rhamnosus 10,000 MMU CELLS/CAPSULE PO SCH ×2 (07:28→21:50)
[2017-12-18] MEDS: linezolid 600mg/300ml PREMIX 300 ML IV SCH ×2 (07:28→21:50)
[2017-12-18 08:59] LABS: ANISOCYTOSIS 3+; MICROCYTOSIS 2+; NUCLEATED RED BLOOD CELLS 3 /100WBC (0-0); PLATELET ESTIMATE NORMAL; TOTAL CELLS COUNTED 100
[2017-12-18 09:00] LABS: HYPOCHROMASIA 2+; POIKILOCYTOSIS FEW; POLYCHROMASIA 2+; TARGET CELLS 1+
[2017-12-18] MEDS: sodium ferric gluc complex inj 125 MG in normal saline 100ml IV soln 100 ML IV SCH (09:14)
[2017-12-18] MEDS: normal saline 1000ml 1,000 ML IV SCH (21:50)
[2017-12-19] VITALS (14 sets, daily range): BP systolic 111–168; BP diastolic 80–93
[2017-12-19] MEDS: furosemide 40mg/4ml inj IV SCH ×2 (00:18→08:18)
[2017-12-19] MEDS: cefepime 1GM/NS ADD-VANTAGE 100 ML IV SCH ×4 (00:19→23:37)
[2017-12-19 03:10] LABS: BASOPHILS % (AUTO) 0 % (0-1); EOSINOPHILS # (AUTO) 0.5 X10'3 (0-0.9); EOSINOPHILS % (AUTO) 2.7 % (0-6); HEMATOCRIT 31.5 % (35.0-45.0); HEMOGLOBIN 9.8 g/dl (12.0-16.0); LYMPHOCYTES # (AUTO) 1.3 X10'3 (1.1-4.8); LYMPHOCYTES % (AUTO) 7.7 % (21-51); MEAN CORPUSCULAR HEMOGLOBIN 22.9 PG (27.0-31.0); MEAN CORPUSCULAR HGB CONC 31.2 % (33.0-36.5); MEAN CORPUSCULAR VOLUME 73.3 FL (78-98); MONOCYTES # (AUTO) 0.3 X10'3 (0-0.9); MONOCYTES % (AUTO) 1.8 % (2-12); NEUTROPHILS # (AUTO) 15.3 X10'3 (1.8-7.7); NEUTROPHILS % (AUTO) 87.8 % (42-75); PLATELET COUNT 264 X10'3 (140-440); RED CELL DISTRIBUTION WIDTH 21.5 % (11.5-14.5); WHITE BLOOD COUNT 17.4 X10'3 (4.5-11.0)
[2017-12-19 03:18] LABS: ALBUMIN 2.5 G/DL (3.4-5.0); ANION GAP 4 (8-16); BLOOD UREA NITROGEN 28 MG/DL (7-18); BUN/CREATININE RATIO 45.9 (6.6-38.0); CALCIUM 8.4 MG/DL (8.5-10.1); CHLORIDE 102 MMOL/L (99-107); CREATININE 0.61 MG/DL (0.40-0.90); GLUCOSE 116 MG/DL (70-104); MAGNESIUM 2.1 MG/DL (1.5-2.4); POTASSIUM 4.1 MMOL/L (3.5-5.1); PROTHROMBIN TIME 10.4 SECONDS (9.0-12.0); SODIUM 139 MMOL/L (135-145); TOTAL CARBON DIOXIDE 33.1 MMOL/L (24-32); eGFR > 90 ML/MIN
[2017-12-19] MEDS: lactobacillus rhamnosus 10,000 MMU CELLS/CAPSULE PO SCH ×2 (08:18→19:22)
[2017-12-19] MEDS: pantoprazole 40 MG vial IV SCH (08:18)
[2017-12-19] MEDS: docusate sodium 100mg/10ml UD cup PO SCH ×2 (08:18→19:22)
[2017-12-19] MEDS: methylPREDNISolone sod succ/PF 40mg inj. IV SCH (08:18)
[2017-12-19] MEDS: sodium ferric gluc complex inj 125 MG in normal saline 100ml IV soln 100 ML IV SCH (08:18)
[2017-12-19] MEDS: linezolid 600mg/300ml PREMIX 300 ML IV SCH ×2 (08:19→19:23)
[2017-12-19] MEDS: enoxaparin 40mg/0.4ml syringe SQ SCH (08:19)
[2017-12-19] MEDS: normal saline 1000ml 1,000 ML IV SCH (10:36)
[2017-12-20 00:26] VITALS: BP 132/89
[2017-12-20 05:47] LABS: BASOPHILS % (AUTO) 0.1 % (0-1); EOSINOPHILS # (AUTO) 0.7 X10'3 (0-0.9); EOSINOPHILS % (AUTO) 3.6 % (0-6); HEMATOCRIT 28.9 % (35.0-45.0); HEMOGLOBIN 9.3 g/dl (12.0-16.0); LYMPHOCYTES # (AUTO) 2.2 X10'3 (1.1-4.8); LYMPHOCYTES % (AUTO) 11.8 % (21-51); MEAN CORPUSCULAR HEMOGLOBIN 23.6 PG (27.0-31.0); MEAN CORPUSCULAR HGB CONC 32.3 % (33.0-36.5); MEAN PLATELET VOLUME 7.7 FL (7.4-10.4); MONOCYTES # (AUTO) 1.1 X10'3 (0-0.9); MONOCYTES % (AUTO) 5.9 % (2-12); NEUTROPHILS # (AUTO) 14.5 X10'3 (1.8-7.7); NEUTROPHILS % (AUTO) 78.6 % (42-75); PLATELET COUNT 271 X10'3 (140-440); RED BLOOD COUNT 3.96 X10'6 (4.20-5.60); RED CELL DISTRIBUTION WIDTH 21.2 % (11.5-14.5); WHITE BLOOD COUNT 18.4 X10'3 (4.5-11.0)
[2017-12-20 05:58] LABS: PROTHROMBIN TIME 10.3 SECONDS (9.0-12.0)
[2017-12-20 05:59] LABS: ALBUMIN 2.3 G/DL (3.4-5.0); ANION GAP 8 (8-16); BLOOD UREA NITROGEN 22 MG/DL (7-18); BUN/CREATININE RATIO 33.8 (6.6-38.0); CALCIUM 8.3 MG/DL (8.5-10.1); CHLORIDE 102 MMOL/L (99-107); CREATININE 0.65 MG/DL (0.40-0.90); GLUCOSE 92 MG/DL (70-104); MAGNESIUM 2.2 MG/DL (1.5-2.4); POTASSIUM 3.7 MMOL/L (3.5-5.1); SODIUM 140 MMOL/L (135-145); TOTAL CARBON DIOXIDE 30.2 MMOL/L (24-32); eGFR > 90 ML/MIN
[2017-12-20 07:22] VITALS: BP 137/89
[2017-12-20] MEDS ORDERED: pantoprazole 40mg Tablet.DR PO SCH (07:30)
[2017-12-20] MEDS: cefepime 1GM/NS ADD-VANTAGE 100 ML IV SCH (07:34)
[2017-12-20] MEDS: docusate sodium 100mg/10ml UD cup PO SCH (07:35)
[2017-12-20] MEDS: enoxaparin 40mg/0.4ml syringe SQ SCH (07:36)
[2017-12-20] MEDS: lactobacillus rhamnosus 10,000 MMU CELLS/CAPSULE PO SCH (07:36)
[2017-12-20 07:45] LABS: PLATELET ESTIMATE NORMAL
[2017-12-20 07:46] LABS: ANISOCYTOSIS 3+; MICROCYTOSIS 2+
[2017-12-20 07:47] LABS: POIKILOCYTOSIS FEW; POLYCHROMASIA 2+; TARGET CELLS FEW
[2017-12-20] MEDS ORDERED: furosemide 40mg tablet PO SCH (08:00)
[2017-12-20] MEDS ORDERED: predniSONE 20 mg tablet PO SCH (08:30)
[2017-12-20] MEDS: sodium ferric gluc complex inj 125 MG in normal saline 100ml IV soln 100 ML IV SCH (09:06)
[2017-12-20 11:38] VITALS: BP 125/74
[2017-12-20] MEDS ORDERED: LACT1CAP26 PO (11:58)
[2017-12-20] MEDS ORDERED: PRED20TA PO (11:58)
[2017-12-20] MEDS ORDERED: LEVO500T2 PO (11:58)
[2017-12-20] MEDS ORDERED: FURO-150 PO (11:59)
[2017-12-20] MEDS ORDERED: POTA10TA19 PO (12:00)
[2017-12-20] MEDS ORDERED: FAMO-128 PO (12:00)
[2017-12-20] MEDS ORDERED: PRED5TAB PO (13:13)
[2017-12-21] MEDS ORDERED: predniSONE 20 mg tablet PO SCH (08:30)
== END 2017-12-20 13:30 | disposition home or self-care (01) | DRG 720 ==
LOC: ER 10:02 → ED HOLD 13:39 → CICU 2S 14:50 → MED 3N 12-19 10:17
PROVIDERS: ADMIT Internal Medicine Critical Care Medicine; ATTEND Internal Medicine Critical Care Medicine
PROC: 5A1955Z Respiratory Ventilation, Greater than 96 Consecutive Hours (ICD-10-PCS; principal; 2017-12-11)
PROC: 0BH18EZ Insertion of Endotracheal Airway into Trachea, Via Natural or Artificial Opening Endoscopic (ICD-10-PCS; 2017-12-11)
PROC: 02HV33Z Insertion of Infusion Device into Superior Vena Cava, Percutaneous Approach (ICD-10-PCS; 2017-12-11)
DX: A40.3 Sepsis due to Streptococcus pneumoniae (principal); J96.00 Acute respiratory failure, unspecified whether with hypoxia or hypercapnia; J90 Pleural effusion, not elsewhere classified; J13 Pneumonia due to Streptococcus pneumoniae; J91.8 Pleural effusion in other conditions classified elsewhere; N17.9 Acute kidney failure, unspecified; E86.0 Dehydration; B19.20 Unspecified viral hepatitis C without hepatic coma; F15.10 Other stimulant abuse, uncomplicated; E87.0 Hyperosmolality and hypernatremia; E87.70 Fluid overload, unspecified; F99 Mental disorder, not otherwise specified; D50.9 Iron deficiency anemia, unspecified; F17.200 Nicotine dependence, unspecified, uncomplicated; I51.7 Cardiomegaly; J98.11 Atelectasis; Z79.899 Other long term (current) drug therapy; Z79.01 Long term (current) use of anticoagulants; Z79.82 Long term (current) use of aspirin
CPT/HCPCS: 36415; 36569; 36600; 71045; 76937; 80048; 80053; 80202; 80305; 81001; 82728; 82803; 82810; 82948; 83540; 83550; 83605; 83735; 83880; 84100; 84132; 84134; 84484; 85018; 85025; 85610; 85730; 86713; 87040; 87070; 87077; 87088; 87186; 87502; 87503; 93005; 93306; 94003; 94640; 94760; 96361; 96365; 96375; 96376; 97110; 97116; 97162; 99291; A6212; A6213; A6257; A6258; A6402; A6449; C1751; C9113; J0456; J0692; J0696; J1650; J1940; J1956; J2020; J2060; J2250; J2270; J2704; J2916; J2920; J2930; J3370; J3490; J7030; J7040; J7512; J8597; Q2037

== ENCOUNTER 2023-05-29 20:09 | Inpatient (IN) | payer MEDICAID ==
[~2023-05-29] VITALS: Ht 154.9 cm; Wt 71.3 kg
[~2023-05-29 20:09] MED LIST: FAMO-128 PO; FURO-150 PO; LACT1CAP26 PO; NO HOME MEDS; PRED5TAB PO
[2023-05-29 21:22] LABS: BASOPHILS % (AUTO) 0.6 % (0-1); EOSINOPHILS # (AUTO) 0.1 X10'3 (0-0.9); EOSINOPHILS % (AUTO) 1.2 % (0-6); HEMATOCRIT 45.8 % (35.0-45.0); HEMOGLOBIN 15.3 g/dl (12.0-16.0); LYMPHOCYTES # (AUTO) 0.7 X10'3 (1.1-4.8); LYMPHOCYTES % (AUTO) 10.5 % (21-51); MEAN CORPUSCULAR HEMOGLOBIN 32.7 PG (27.0-31.0); MEAN CORPUSCULAR HGB CONC 33.4 g/dL (33.0-36.5); MEAN CORPUSCULAR VOLUME 97.9 FL (78-98); MEAN PLATELET VOLUME 7.8 FL (7.4-10.4); MONOCYTES # (AUTO) 0.6 X10'3 (0-0.9); MONOCYTES % (AUTO) 8.7 % (2-12); NEUTROPHILS # (AUTO) 5.3 X10'3 (1.8-7.7); PLATELET COUNT 139 X10'3 (140-440); RED BLOOD COUNT 4.67 X10'6 (4.20-5.60); RED CELL DISTRIBUTION WIDTH 14.9 % (11.5-14.5); WHITE BLOOD COUNT 6.7 X10'3 (4.5-11.0)
[2023-05-29 21:31] LABS: ALANINE AMINOTRANSFERASE 58 U/L (12-78); ALBUMIN 3.4 G/DL (3.4-5.0); ALBUMIN/GLOBULIN RATIO 0.8 (1.1-1.5); ALKALINE PHOSPHATASE 124 IU/L (46-116); ANION GAP 9 (8-16); ASPARTATE AMINO TRANSFERASE 52 U/L (10-37); BILIRUBIN,TOTAL 1.4 MG/DL (0.1-1.0); BLOOD UREA NITROGEN 27 MG/DL (7-18); BUN/CREATININE RATIO 22.9 (10.0-20.0); CHLORIDE 104 MMOL/L (99-107); CREATININE 1.18 MG/DL (0.40-0.90); GLUCOSE 125 MG/DL (70-104); POTASSIUM 4.7 MMOL/L (3.5-5.1); SODIUM 137 MMOL/L (135-145); TOTAL CARBON DIOXIDE 24.3 MMOL/L (24-32); TOTAL PROTEIN 7.5 G/DL (6.4-8.2); eCRCL 44 ML/MIN; eGFR 49 ML/MIN
[2023-05-29 21:38] LABS: PRO BRAIN NATRIURETIC PEPTIDE 6450 PG/ML (0-125)
[2023-05-30] VITALS (13 sets, daily range): BP systolic 106–142; BP diastolic 67–101; PULSE 67–96; RESP 20–25; TEMP 97.6–100; O2SAT 93–96
[2023-05-30] MEDS ORDERED: morphine 2 MG/ML inj. syringe IV PRN (00:20)
[2023-05-30] MEDS ORDERED: potassium Cl 40MEQ/1/2NS 520ml 520 ML IV PRN (00:20)
[2023-05-30] MEDS ORDERED: potassium Cl 20 mEq SR tablet PO PRN ×2 (00:20)
[2023-05-30] MEDS ORDERED: magnesium 4gm in 100ml NS 100 ML IV PRN (00:20)
[2023-05-30] MEDS ORDERED: ondansetron/PF 4mg/2ml inj IV PRN (00:20)
[2023-05-30] MEDS ORDERED: mag hydrox/Alum hydrox/simeth 30ml oral suspension PO PRN (00:20)
[2023-05-30] MEDS ORDERED: magnesium 2GM in 50ml NS 50 ML IV PRN (00:20)
[2023-05-30] MEDS ORDERED: HYDROcodone/acetaminophen 5mg/325mg tablet PO PRN (00:20)
[2023-05-30] MEDS ORDERED: magnesium hydroxide 30ml (MOM) UD suspension PO PRN (00:20)
[2023-05-30] MEDS ORDERED: magnesium Cl slow-release 64mg tablet PO PRN (00:20)
[2023-05-30] MEDS ORDERED: acetaminophen 325mg tablet PO PRN (00:20)
--- NOTE | 2023-05-30 03:51 | NUR ---
PATIENT IN THE ROOM RESTING WITH NO APPARENT DISTRESS
[2023-05-30] MEDS ORDERED: metoprolol tartrate 1mg/ml inj IV PRN (05:55)
[2023-05-30] MEDS ORDERED: aminophylline 250mg/10ml inj. IV PRN (05:55)
[2023-05-30] MEDS ORDERED: nitroGLYCERIN 0.4mg SUBLingual tab SL PRN (05:55)
[2023-05-30] MEDS ORDERED: regadenoson 0.4mg/5ml syringe IV PRN (05:55)
--- NOTE | 2023-05-30 06:35 | NUR ---
Problems reprioritized. Patient report given, questions answered & plan of care reviewed with CHECO RUIZ.
[2023-05-30] MEDS ORDERED: furosemide 10 MG/1 ML 10ml inj IV SCH (08:00)
[2023-05-30] MEDS ORDERED: K and/or MAG REPLACEMENT MC SCH (08:00)
[2023-05-30] MEDS ORDERED: enoxaparin 40mg/0.4ml syringe SUBCUT SCH (08:00)
[2023-05-30] MEDS ORDERED: docusate sod 100mg capsule PO SCH (08:00)
[2023-05-30] MEDS ORDERED: atorvastatin 20mg tablet PO SCH (08:00)
[2023-05-30] MEDS ORDERED: aspirin 81mg, enteric-coated 1 TAB TABLET.DR PO SCH (08:00)
[2023-05-30 09:03] LABS: MAGNESIUM 2.1 MG/DL (1.5-2.4)
[2023-05-30 09:10] LABS: POTASSIUM 4.6 MMOL/L (3.5-5.1)
[2023-05-30] MEDS ORDERED: ASPI-1071 PO (13:37)
[2023-05-30] MEDS ORDERED: NITR0.4T51 SL (13:37)
[2023-05-30] MEDS ORDERED: ATOR20TA66 PO (13:37)
--- NOTE | 2023-05-30 15:30 | NUR ---
Pt's PIV removed with cannula intact. Pt denies CP, SOB. Pt's O2 removed with O2 sats >92% on RA. Pt's discharge paperwork reviewed and questions answered. Pt in NAD. Pt's at bedside. Pt refused to leave via wheelchair. Pt walked out with who is driving pt home.
== END 2023-05-30 16:09 | disposition home or self-care (01) | DRG 198 ==
LOC: ER 20:09 → ED HOLD 05-30 00:33 → PCU 3S 05-30 03:25
PROVIDERS: ADMIT Internal Medicine; ATTEND Internal Medicine
PROC: 4A02XM4 Measurement of Cardiac Total Activity, External Approach (ICD-10-PCS; principal; 2023-05-30)
PROC: 3E073KZ Introduction of Other Diagnostic Substance into Coronary Artery, Percutaneous Approach (ICD-10-PCS; 2023-05-30)
DX: I24.9 Acute ischemic heart disease, unspecified (principal); J96.00 Acute respiratory failure, unspecified whether with hypoxia or hypercapnia; I50.9 Heart failure, unspecified; I11.0 Hypertensive heart disease with heart failure; K74.60 Unspecified cirrhosis of liver; B19.20 Unspecified viral hepatitis C without hepatic coma; F15.10 Other stimulant abuse, uncomplicated; Z87.891 Personal history of nicotine dependence; Z79.899 Other long term (current) drug therapy; Z90.49 Acquired absence of other specified parts of digestive tract; Z71.51 Drug abuse counseling and surveillance of drug abuser
CPT/HCPCS: 36415; 71045; 78452; 80053; 83735; 83880; 84132; 84484; 85025; 87081; 93005; 93017; 93308; 99285; A9500; G0378; J1650; J1940; J2785

== ENCOUNTER 2025-05-16 00:05 | Inpatient (IN) | payer MEDICAID ==
[2025-05-16] VITALS (13 sets, daily range): BP systolic 105–126; BP diastolic 75–94; PULSE 78–92; RESP 16–23; TEMP 97.9–98.2; O2SAT 90–95
[~2025-05-16] VITALS: Ht 160 cm; Wt 69.7 kg
[~2025-05-16 00:05] MED LIST changes: +ASPI-1071 PO; +ATOR20TA66 PO; +NITR0.4T51 SL
[2025-05-16 00:35] LABS: MEAN PLATELET VOLUME 7.4 FL (7.4-10.4); RED CELL DISTRIBUTION WIDTH 13.7 % (11.5-14.5)
[2025-05-16 00:53] LABS: CREATININE 1.02 MG/DL (0.40-0.90); PRO BRAIN NATRIURETIC PEPTIDE 1742 PG/ML (0-125); TOTAL CARBON DIOXIDE 21.6 MMOL/L (24-32); eCRCL 55 ML/MIN; eGFR 57 ML/MIN
--- NOTE | 2025-05-16 00:55 | RADIOLOGY REPORT ---
CHEST RADIOGRAPH Indication: CP Technique: Single frontal view of the chest was obtained Comparison: DI CHEST,SINGLE VIEW on DOS: 05/29/23 FINDINGS: Lines and Tubes: None Lungs: Mild pulmonary vascular congestion. No focal consolidation. Pleura: No effusion. No pneumothorax. Cardiomediastinal contours: Stable moderate cardiomegaly. Bones: No acute osseous abnormality. IMPRESSION: 1. Mild pulmonary vascular congestion. No focal consolidation. 2. Stable moderate cardiomegaly.
--- NOTE | 2025-05-16 03:55 | Physician Documentation ---
History of Present Illness ~ Chief Complaint: Shortness of Breath Stated Complaint: CHEST PAINS,SOB Time Seen by MD: 03:44 OK to notify your PCP?: Yes Primary Medical Doctor: [facility] Source: patient, RN/MD, RN notes reviewed, old records Mode of Arrival: POV Exam Limitations: no limitations HPI 50 year old female with history of CAD and COPD presents to the emergency department seen in bed 12 for complaints of chest pain that began when trying to sleep tonight. She states that she began to have a squeezing chest pain with shortness of breath and palpitations. She states that she also felt diaphoretic. She states that since she has not been able to make her primary care appointments she has bot been able to get her medications filled and has been without her heart medications for three months. She endorses last using meth one day ago but insists she is decreasing her meth use. Medication Reconciliation Allergies: Coded Allergies: No Known Allergies (Unverified , 08/08/10) Scheduled Aspirin (Ecotrin*), 1 TAB PO DAILY Atorvastatin Calcium (Atorvastatin Calcium), 20 MG PO DAILY Famotidine (Pepcid), 1 TAB PO Q12H Furosemide (Lasix), 1 TAB PO BID Ipratropium/Albuterol Sulfate (Duoneb 2.5-0.5 Mg/3 Ml Soln), 3 ML IH QID Metoprolol Tartrate (Lopressor tablet), 12.5 MG PO BID Potassium Chloride (Potassium Chloride), 1 TAB PO DAILY Salmeterol Xinafoate* (Serevent Diskus*), 1 PUFFS INH Q12H Scheduled PRN Albuterol Sulfate (Albuterol Sulfate), 1 VIAL INH Q4HPRN PRN for wheezing Nitroglycerin SL* (Nitrostat SL*), 0.4 MG SL Q5MIN PRN for chest pain albuterol inhaler (Pro-Air Inhaler), 1-2 PUFFS PO Q4H PRN for shortness of breath, (Reported) Discontinued Medications Home Med List (No Home Medications), (Reported) Discontinued Reason: Other Lactobacillus Rhamnosus (Culturelle), 10,000 MMU PO Q12H Prednisone* (Prednisone*), 1 TAB PO DAILY Tiotropium [place] (Spiriva), 1 CAP INH DAILY, (Reported) Past Medical History Past Medical History: Coronary Artery Disease, COPD Past Surgical History: no surgical history Drug Use: methamphetamine Lives with: Spouse Lives In: Home Review of Systems All Other Systems at this time: Reviewed and Negative ROS As stated above in the HPI, otherwise all systems are reviewed and negative. Physical Exam Vital Signs: RN Vital Signs have been reviewed: Yes, Temperature: 97.5, Source: Temporal, Heart Rate: 88, Respiratory Rate: 14, BP: 131/99, Pulse Oximetry: 92, Weight: 69.700 Oxygen Flow Rate: 0 Pulse Oximetry Reflects: adequate oxygenation Physical Exam General: The patient is well developed, well nourished, nontoxic appearing and is in no acute distress. Skin: [place], warm and dry with no rashes. HEENT: Head was normocephalic and atraumatic. Eyes - pupils equal, round, reactive to light and accommodation. Extraocular movements were intact. Conjunctivae were nonicteric. Ears - bilateral tympanic membranes were normal. The mouth and oropharynx were clear with moist mucous membranes. There were no pharyngeal exudates or erythema. Neck: Supple and nontender. There was no jugular venous distention, lymphadenopathy, thyromegaly or masses. Chest: Crackles noted in the bottom of the lungs. No accessory muscle use. No dullness to percussion. Heart: Rate regular and rhythmic. S1, S2. No murmurs. Palpation of the chest wall was normal. No rubs or thrills. Abdomen: Soft, nontender and nondistended. Positive bowel sounds. No guarding or rebound. No hepatosplenomegaly or palpable masses. Extremities: Trace edema to lower extremities. The patient moves all extremities. Pulses were equal and symmetric. Neurologic: Cranial nerves II-XII were intact. Sensation was intact to light touch throughout. Motor strength was 5/5 in all four extremities. Deep tendon reflexes were intact in both upper and lower extremities. Psychologic: The patient was oriented to person, place and time. The patient demonstrated appropriate judgement and insight. Progress Progress Note 0414: The case was discussed with the hospitalist who was informed on the patients case and kindly agreed to admission. Results/Orders Results/Orders Orders - FILI ZULETA MD Chest,Single View (05/16/25 00:37) Monitor (05/16/25 00:19) Saline Lock (05/16/25 00:19) Oxygen (8/5/25 00:19) Echocardiogram (05/16/25 04:03) Page Hospitalist (05/16/25 04:06) Fill Out Med Reconciliation (05/16/25 04:06) Completed Orders - FILI ZULETA MD Chest,Single View (05/16/25 00:37) Cbc/Diff (05/16/25 00:19) BMP (05/16/25 00:19) PBNP (05/16/25 00:19) Hs Troponin I W Calculations (05/16/25 00:19) Hs Troponin I W Calculations (05/16/25 02:19) Hs Troponin I W Calculations (05/16/25 03:19) Drug Screen, Urine (05/16/25 03:53) Ethanol (05/16/25 00:26) MG (05/16/25 00:26) Echocardiogram (05/16/25 04:03) Aspirin 81mg Chew Tablet (Aspirin 81mg C (05/16/25 04:05) Nitroglycerin 0.2mg/Hour Patch (Nitro-Du (05/16/25 04:05) Carvedilol Tablet (Coreg Tablet) (05/16/25 04:05) Heparin 25,000 Unit/250ml Bag (Heparin 2 (05/16/25 04:05) Pt Inr (05/16/25 04:12) PTT (05/16/25 04:12) Carvedilol Tablet (Coreg Tablet) (05/16/25 04:05) Heparin 10,000 Unit/Ml 1ml (Heparin 10,0 (05/16/25 04:20) Message To Nursing (05/16/25 04:25) Heparin 10,000 Unit/Ml 1ml (Heparin 10,0 (05/16/25 04:25) ALT (05/16/25 00:26) AST (05/16/25 00:26) Hgb A1c (05/16/25 00:26) Lipid Panel (05/16/25 00:26) TSH (05/16/25 00:26) Vital Signs 05/16/25 05/16/25 05/16/25 05/16/25 00:13 02:03 02:51 03:14 Temp 97.5 Pulse 96 92 88 Resp 16 19 23 14 B/P (MAP) 135/100 139/94 (109) 131/99 (110) Pulse Ox 92 92 92 O2 Flow Rate 0 0 0 05/16/25 04:30 Pulse 84 Resp 17 B/P (MAP) 140/98 (112) Pulse Ox 93 O2 Flow Rate 0 Laboratory Tests Test 05/16/25 00:26 05/16/25 02:28 05/16/25 03:26 05/16/25 04:34 White Blood Count 6.3 Red Blood Count 5.06 Hemoglobin 17.0 H Hematocrit 48.6 H Mean Corpuscular Volume 96.1 Mean Corpuscular Hemoglobin 33.6 H Mean Corpuscular Hemoglobin Concent 35.0 Red Cell Distribution Width 13.7 Platelet Count 201 Mean Platelet Volume 7.4 Neutrophils (%) (Auto) 59.1 Lymphocytes (%) (Auto) 27.8 Monocytes (%) (Auto) 7.6 Eosinophils (%) (Auto) 4.8 Basophils (%) (Auto) 0.7 Neutrophils # (Auto) 3.7 Lymphocytes # (Auto) 1.7 Monocytes # (Auto) 0.5 Eosinophils # (Auto) 0.3 Basophils # (Auto) 0.0 CBC Comment Sodium Level 134 L Potassium Level 4.0 Chloride Level 106 Carbon Dioxide Level 21.6 L Anion Gap 6 L Blood Urea Nitrogen 21 H Creatinine 1.02 H Estimated GFR/1.73 m2 57 BUN/Creatinine Ratio 20.6 H Glucose Level 103 Hemoglobin A1c 5.5 Calcium Level 8.6 Magnesium Level 1.8 Aspartate Amino Transf (AST/SGOT) 89 H Alanine Aminotransferase (ALT/SGPT) 87 H Troponin I High Sensitivity 61 *H 70 *H 68 *H Pro-B-Type Natriuretic Peptide 1742 H Albumin 3.5 Triglycerides Level 91 Cholesterol Level 125 LDL Cholesterol 63 HDL Cholesterol 43 Cholesterol/HDL Ratio 2.9 Thyroid Stimulating Hormone (TSH) 4.92 H Chemistry Comments Ethyl Alcohol Level < 10 Troponin I High Sens Percent Delta 14 2 Troponin I Hi Sens Absolute Change 9 -2 Prothrombin Time 11.7 INR International Normalized Ratio 1.2 Activated Partial Thromboplast Time 27 Coagulation Comments Re-Evaluation Re-evaluation : Re-Evaluation: Improved Progress Patient was seen and examined. Patient is given reassurance. Patient has a history of coronary artery disease as well as heart failure. Patient was appearing a bit ill. Laboratory work was obtained placed on monitor tech. Patient also had an echocardiogram ordered by myself because of fluid overload. Patient received aspirin nitroglycerin and to control her hypertension as well as tachycardia relatively speaking in the picture of heart failure patient was given Coreg as well. Later laboratory work shows elevated troponins which was concerning so a heparin bolus and drip was then given. Later additional doses of Coreg was given once again. The hospitalist service was then contacted who kindly agreed to admit the patient for further workup and care. CBC WBC shows a hemoglobin of 17 hematocrit of 48 otherwise within normal limits no left shift. Initial chemistry was within normal limits. Tox screen unfortunately is positive for methamphetamine. Patient's 1st troponins 61 2nd is 70. Chemistry shows a sodium of 134 potassium 4.0 chloride 106 CO2 21.6 with BUN of 21 and creatinine of 1.02. There was some mild prerenal dehydration but also some metabolic acidosis slight hyponatremia as well. Liver function tests shows AST of 89 and ALT of 87 slightly elevated proBNP elevated at 1742. Blood pressure was slightly elevated at 130 5/100 diastolic. Continuous monitor tech interpretation shows normal sinus rhythm heart rate 90s, no ectopy, normal, my interpretation however abnormal for this patient. Pulse oximetry monitor interpretation has a bit low at 92% room air, normal, my interpretation. EKG/XRAY/CT/US/VASC/MRI EKG : Additional Comment 0014: AMEYA Zuleta interpreted EKG to show sinus rhythm at a rate of 91 with a QTc of 503. Nonspecific ST changes with T wave inversions. Chest X-Ray : Additional Comments CHEST RADIOGRAPH Indication: CP Technique: Single frontal view of the chest was obtained Comparison: DI CHEST,SINGLE VIEW on DOS: 05/29/23 FINDINGS: Lines and Tubes: None Lungs: Mild pulmonary vascular congestion. No focal consolidation. Pleura: No effusion. No pneumothorax. Cardiomediastinal contours: Stable moderate cardiomegaly. Bones: No acute osseous abnormality. IMPRESSION: 1. Mild pulmonary vascular congestion. No focal consolidation. 2. Stable moderate cardiomegaly. Electronically Signed by:RUDOLPH TOUSSAINT MD Date & Time: 05/16/25 0052 Heart Score: Heart Score Response (Comments) Value History Highly Suspicious [address]-Deviation 2 Age 45-64 1 Risk Factors >3 or Hx ASHD 2 Troponin >3 x's Normal limit 2 Total 9 Medical Decision Making Additional info obtained from: old records Differential Dx:Considerations: Include: anxiety, asthma, bronchitis, cardiogenic shock, CHF, COPD, dysrhythmia, hypertension, accelerated, hypertension, essential, hypertension, malignant, hyperventilation, hyponatremia, myocardial infarction, panic attack, pneumonia, pneumonitis, pneumothorax, PSVT, pulmonary embolism, respiratory distress, respiratory failure, sinusitis, upper resp. 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 Accelerated hypertension Condition: Fair Referrals: NO PRIMARY CARE PROVIDER (PCP) Prescriptions Potassium Chloride (Potassium Chloride) 10 Meq Tab.prt.sr 1 TAB PO DAILY for 20 Days, #20 TAB 0 Refills Prov: RICK GUZMAN RES 05/18/25 Furosemide (LASIX) 20 Mg Tablet 1 TAB PO BID for 30 Days, #30 TAB Prov: RICK GUZMAN RES 05/18/25 Salmeterol Xinafoate* (Serevent Diskus*) 50 Mcg Disk.w.dev 1 PUFFS INH Q12H for 30 Days, #1 EA Prov: RICK GUZMAN RES 05/18/25 Albuterol Sulfate (Albuterol Sulfate) 2.5 Mg/3 Ml Vial.neb 1 VIAL INH Q4HPRN PRN for wheezing, #150 ML 0 Refills Prov: RICK GUZMAN RES 05/18/25 Metoprolol Tartrate (Lopressor tablet) 25 Mg Tablet 12.5 MG PO BID for 30 Days, #60 TAB Hold for SBP below 100mm Hg Hold for Heart Rate below 60. Prov: RICK GUZMAN RES 05/18/25 Ipratropium/Albuterol Sulfate (Duoneb 2.5-0.5 Mg/3 Ml Soln) 0.5 Mg-3 Mg (2.5 Mg Base)/3 Ml Ampul.neb 3 ML IH QID, #1 ML Prov: RICK GUZMAN RES 05/18/25 Education Educated: Patient, Family Educated regarding: diagnosis, treatment, prognosis, need for follow up Critical Care Note Total Time (mins): 30 Critical Care Note The very real possibility of a deterioration of this patient's condition required the highest level of my preparedness for sudden, emergent intervention. I provided critical care services, which included medication orders, frequent reevaluations of the patient's condition and response to treatment, ordering and reviewing test results, and discussing the case with various consultants. Excludes time spent performing separately billable procedures. The critical care time associated with the care of the patient was 30 minutes. Signature Scribe Signature: Scribed for Fili Zuleta MD by Beena Madden . 05/16/25 04:13 Attestation: The note accurately reflects work and decisions made by me.Fili Zuleta MD 05/16/25 03:55 FILI ZULETA MD May 16, 2025 03:55 BEENA THOMPSON May 16, 2025 04:11
[2025-05-16] MEDS ORDERED: heparin 10,000 units/1 ML INJ IV ONE (04:05)
[2025-05-16 04:13] LABS: ETHANOL < 10 MG/DL (<10)
[2025-05-16] MEDS ORDERED: potassium Cl 40MEQ/1/2NS 520ml 520 ML IV PRN (04:15)
[2025-05-16] MEDS ORDERED: metoprolol tartrate 1mg/ml inj IV PRN (04:15)
[2025-05-16] MEDS ORDERED: magnesium Cl slow-release 64mg tablet PO PRN (04:15)
[2025-05-16] MEDS ORDERED: ondansetron/PF 4mg/2ml inj IV PRN (04:15)
[2025-05-16] MEDS ORDERED: magnesium hydroxide 30ml (MOM) UD suspension PO PRN (04:15)
[2025-05-16] MEDS ORDERED: magnesium sulf-water 2g/50mL 50 ML IV PRN (04:15)
[2025-05-16] MEDS ORDERED: magnesium sulf-water 4G/100mL 100 ML IV PRN (04:15)
[2025-05-16] MEDS ORDERED: aminophylline 250mg/10ml inj. IV PRN (04:15)
[2025-05-16] MEDS ORDERED: potassium Cl 20 mEq SR tablet PO PRN ×2 (04:15)
[2025-05-16] MEDS ORDERED: PERFLUTREN PROTEIN-A MICROSPHR (Optison) 0.22 MG/ML 3ML VIAL IV PRN (04:15)
[2025-05-16 04:53] LABS: APTT 27 SECONDS (22-32); INR 1.2 INR
--- NOTE | 2025-05-16 04:55 | HISTORY AND PHYSICAL-Residence ---
History & Physical Providers to CC Resident Creating Document: NANCE LEANDROHAYDEN ORALIA CC: CHRISSY GLEZ MD ~ History of Present Illness Primary Medical Doctor: [facility] Reason for Admit\Complaint: Shortness of breath History of Present Illness Patient is a 50-year-old female with a history of CHF, CAD, COPD, chronic hepatitis-C, ARORA, and MANJIT who came to the ED due to shortness of breath. Patient reports that for the past 2 weeks of or so she has been experiencing increasing shortness of breath at rest, along with orthopnea and PND. In addition, she reports intermittent chest pain which she has had in the past but has been worsening for the past 2 weeks as well, she describes it at lives sided, squeezing sensation, 5/10 in intensity, nonradiating, intermittent happening at random times, lasting from few minutes up to 10 minutes, she denies aggravating or attenuating factors. Of note, patient reports that since she missed her last appointment with her PCP, she was not able to get refills of her heart failure medications. She also endorses increased alcohol intake for the past days and continuing using meth. Allergies: Coded Allergies: No Known Allergies (Unverified , 08/08/10) Home Medications Home Medications Active Ecotrin* (Aspirin) 81 Mg Tablet.dr 1 Tab PO DAILY 30 Days Nitrostat SL* (Nitroglycerin) 0.4 Mg Tablet 0.4 Mg SL Q5MIN PRN 30 Days Atorvastatin Calcium 20 Mg Tablet 20 Mg PO DAILY 30 Days Prednisone* (Prednisone) 5 Mg Tablet 1 Tab PO DAILY 30 Days Pepcid (Famotidine) 20 Mg Tablet 1 Tab PO Q12H 30 Days Lasix (Furosemide) 20 Mg Tablet 1 Tab PO DAILY 30 Days Culturelle (Lactobacillus Rhamnosus) 1 Each Capsule 10,000 Mmu PO Q12H 15 Days Reported No Home Medications (Home Med List) Each Past Medical History Past Medical History CHF CAD COPD Chronic hepatitis-C Steatohepatitis MANJIT Past Surgical History Surgical History Comment Cholecystectomy Tubal ligation Past Social History Smoking: Quit greater than 1 year Alcohol Use: Heavy Drug Use: Marijuana, Methamphetamine Lives with: Spouse Lives In: Home ROS ROS All systems were reviewed and found negative except for pertinent positives mentioned in HPI Exam Vitals: Vital Signs Date Time Temp Pulse Resp B/P (MAP) Pulse Ox O2 Delivery O2 Flow Rate FiO2 05/16/25 03:14 88 14 131/99 (110) 92 0 05/16/25 00:13 97.5 General: General: awake, alert oriented to place, time, and person HEENT: No pallor present, no icterus, moist mucous membranes Neck: No masses and tenderness Resp: Unlabored. Lungs clear to auscultation bilaterally. Chest: Normal expansion Cardiovascular: Regular Rate and rhythm, normal S1 and S2 without murmur, rub or gallop Abdomen: Soft and nontender, no organomegaly, no guarding and rigidity, bowel sounds present Neuro: No focal weakness in the upper and lower limb muscles, power of the muscles 5/5 bilateral upper and lower extremities, normal reflexes bilaterally. Cranial nerves intact Extremities: Trace lower extremity edema, no cyanosis or clubbing Skin: Warm and Dry. No lesions Psych: Normal affect Diagnostic Data Last Recorded Lab Results: 05/16/25 0026 05/16/25 0026 Diagnostic Data: Laboratory Tests Test 05/16/25 04:34 Coagulation Comments Advance Care Planning Advanced Care plannin - 30 Minutes Additional Plan Patient is a 50-year-old female with a history of CHF, CAD, COPD, chronic hepatitis-C, ARORA, and MANJIT who came to the ED due to shortness of breath. Admitted for evaluation and management of acute on chronic heart failure and NSTEMI versus unstable angina. Chest pain ACS, NSTEMI versus unstable angina Possible type 2 AR Acute on chronic heart failure with preserved ejection fraction Methamphetamine induced cardiomyopathy Heart score: 6 Patient is hemodynamically stable with no significant fluid overload Troponins are mildly elevated but stable Last echocardiogram from 2022 showed EF of 70% with hypokinetic right ventricle Lexiscan from 2022 showed Perfusion defect in the septum at both stress and rest, with greater perfusion defect overall on stress imaging compared to rest. May be partly artifactual, although possibly due to reversible ischemia. Chest x-ray today shows mild pulmonary vascular congestion with cardiomegaly Received Coreg in ED Continue nicotine patch Started on heparin drip in ED Start Lasix 60 mg IV once, then 40 mg IV b.i.d. Pending echocardiogram Pending Lexiscan Cardiology consult in a.m. COPD, not in exacerbation DuoNebs q.4 PRN Chronic hepatitis-C Steatohepatitis Pending med rec Continue monitoring CMP Code Status: Full code DVT prophylaxis: Heparin drip Nutrition: Heart healthy diet. NPO for Lexiscan Prognosis: Guarded Disposition: Admit to PCU with tele monitoring. Pending Lexiscan. Pending echo. Pending cardiology consult Hayden Ayala MD Internal Medicine Resident PGY-2 Plan reviewed with bedside team. Patient seen through remote audiovisual assessment through HIPAA compliant setup. All labs, flowsheets, and images reviewed Cumulative nonprocedural care time spent in directed patient care = 30 min Date of Service: May 16, 2025 Billing Provider: CHRISSY GLEZ MD, LEONARDO LUIS May 16, 2025 04:55 CHRISSY GLEZ MD May 16, 2025 06:44
--- NOTE | 2025-05-16 05:24 | ELECTROCARDIOGRAPH REPORT ---
[facility] Test Date: 2025-05-16 Test Time: 00:14:31 Pat Name: CALE LEDESMA Department: EMERGENCY ROOM Room: [place] [address] Gender: F [employer] Waste Technician: ZAIN : 1975 Requested By: MARLYN STEPHENS Order Number: [id number] Reading MD: Dr. Manolo Stephens Measurements Intervals [place] Rate: 91 P: 60 SD: 172 QRS: 132 QRSD: 119 T: -10 QT: 408 QTc: 503 Interpretive Statements Sinus rhythm LAE, consider biatrial enlargement IRBBB and LPFB Lateral infarct, acute Electronically Signed On 05-16-2025 20:05:[address] Manolo Stephens Please click the below link to view image of tracing.
[2025-05-16] MEDS: furosemide 10 MG/1 ML 10ml inj IV ONE (05:25)
[2025-05-16] MEDS: heparin 10,000 units/1 ML INJ IV ONE (05:37)
[2025-05-16] MEDS: heparin 25,000 UNIT/250ml bag 250 ML IV PRN (05:38)
[2025-05-16] MEDS: MESSAGE TO NURSING IV ONE ×3 (05:39→19:45)
[2025-05-16] MEDS: K and/or MAG REPLACEMENT MC SCH (06:14)
[2025-05-16] MEDS: docusate sod 100mg capsule PO SCH (06:15)
[2025-05-16 07:52] LABS: URINE AMPHETAMINE SCREEN POSITIVE (Neg); URINE BARBITUATE SCREEN NEGATIVE (Neg); URINE BENZODIAZEPINES SCREEN NEGATIVE (Neg); URINE CANNABINOID SCREEN POSITIVE (Neg); URINE COCAINE SCREEN NEGATIVE (Neg); URINE METHADONE SCREEN NEGATIVE (Neg); URINE OPIATE SCREEN NEGATIVE (Neg); URINE PHENCYCLIDINE SCREEN NEGATIVE (Neg)
[2025-05-16] MEDS: regadenoson 0.4mg/5ml syringe IV PRN (09:04)
--- NOTE | 2025-05-16 12:38 | RADIOLOGY REPORT ---
CLINICAL INFORMATION: 50 years old, Female; Angina. TECHNIQUE: 8.7 mCi of technetium 99m sestamibi was infused at rest. Rest SPECT imaging was obtained. Routine protocol for Lexiscan stress study was performed with 0.4 mg of Lexiscan. 35 mCi of techneti um 99m sestamibi was infused. Stress SPECT imaging was obtained. COMPARISON: NM NM LOBO SCAN on DOS: 05/30/23 FINDINGS: Resting heart rate of 82 BPM increased to maximum rate of 88 BPM. Resting blood pressure of 117/79 increased to 127/82. There were no significant ST-T wave EKG changes. There was no chest pain . There is a moderate sized perfusion defect in the inferoseptal and anteroseptal estrella on both stress and rest images, to a greater extent on stress, with extension to portions of the anterior wall on st ress. Possible stress-induced ischemia involving the apical anterior and mid anterior segments. TID r atio is 1.15. Wall motion imaging appears normal. Calculated left ventricular ejection fraction is 58%. IMPRESSION: 1. Perfusion defects in the inferoseptal and anteroseptal estrella on both stress and rest images with e xtension to portions of the anterior wall on stress only. Possible stress-induced ischemia involving the apical anterior and mid anterior segments. Similar findings are seen on the prior examination fr om 2022. 2. Left ventricular ejection fraction is 58%.
[2025-05-16 16:04] LABS: CHOL/HDL RATIO 2.9 (0.00-4.99); LDL CHOLESTEROL 63 MG/DL (50-100)
--- NOTE | 2025-05-16 19:01 | PROGRESS NOTE- Residence ---
Progress Note - Resident Providers to CC Resident Creating Document: RICK GUZMAN RES ~ Antibiotic Timeout Antibiotic Ordered?: No Subjective Patient seen and examined at the bedside denied shortness of breaths chest pain or any complaint Objective Vital Signs Date Time Temp Pulse Resp B/P (MAP) Pulse Ox O2 Delivery O2 Flow Rate FiO2 05/16/25 15:14 97.9 88 22 121/91 (101) 92 Room Air 05/16/25 14:00 0 Result Diagram: 05/16/25 0026 05/16/25 0621 General: Awake and Alert, no acute distress. HEENT: Conjunctiva pink, Sclera clear, Mucus Membranes moist. Neck: Supple without masses and tenderness. Resp: Lungs clear to auscultation bilaterally. Heart: Regular Rate and rhythm, normal S1 and S2 Abdomen: Soft and non tender Extremities: No cyanosis,clubbing or edema. Skin: Warm and Dry. Neurological: Speech is clear, alert, and oriented x 4, no gross neurological deficits Coagulation Studies Laboratory Tests Test 05/16/25 04:34 05/16/25 18:07 Prothrombin Time 11.7 SECONDS (9.0-12.0) INR International Normalized Ratio 1.2 INR Activated Partial Thromboplast Time 27 SECONDS (22-32) Coagulation Comments Plan Plan Patient is a 50-year-old female with a history of CHF, CAD, COPD, chronic hepatitis-C, ARORA, and MANJIT who came to the ED due to shortness of breath. Admitted for evaluation and management of acute on chronic heart failure and NSTEMI versus unstable angina. Chest pain ACS, unstable angina Acute on chronic heart failure with preserved ejection fraction Methamphetamine induced cardiomyopathy Heart score: 6 Patient is hemodynamically stable with no significant fluid overload Troponins are mildly elevated but stable Chest x-ray today shows mild pulmonary vascular congestion with cardiomegaly Last echocardiogram from 2022 showed EF of 70% with hypokinetic right ventricle Lexiscan from 2022 showed Perfusion defect in the septum at both stress and rest, with greater perfusion defect overall on stress imaging compared to rest. May be partly artifactual, although possibly due to reversible ischemia. Received Coreg in ED, Continue nicotine patch Started on heparin drip in ED Start Lasix 60 mg IV once, then 40 mg IV b.i.d. Pending echocardiogram Lexiscan showed: 1. Perfusion defects in the inferoseptal and anteroseptal estrella on both stress and rest images with extension to portions of the anterior wall on stress only. Possible stress-induced ischemia involving the apical anterior and mid anterior segments. Similar findings are seen on the prior examination from 2022. 2. Left ventricular ejection fraction is 58%. Dr. Galvez was informed, pending evaluation We will continue heparin drip Atorvastatin metoprolol and aspirin started COPD, not in exacerbation DuoNebs q.4 PRN Chronic hepatitis-C Steatohepatitis Continue monitoring Code Status: Full code DVT prophylaxis: Heparin drip Nutrition: Heart healthy diet Prognosis: Guarded Date of Service: May 16, 2025 Billing Provider: NICOLE JORGE MD Common Visit Codes: [id number] INP/OBS CARE(HIGH) RICK GUZMAN, RES May 16, 2025 19:01 NICOLE JORGE MD May 17, 2025 08:34
[2025-05-16] MEDS: metoprolol tartrate 12.5mg (1/2 tablet) PO SCH (19:30)
[2025-05-16] MEDS ORDERED: TIOT18CA3 INH (19:43)
[2025-05-16] MEDS ORDERED: ALBU8HFA PO (19:43)
[2025-05-16] MEDS: heparin 10,000 units/1 ML INJ IV PRN (19:49)
[2025-05-17] VITALS (10 sets, daily range): BP systolic 94–121; BP diastolic 68–86; PULSE 74–84; RESP 14–20; TEMP 96.5–98; O2SAT 93–96
[2025-05-17 02:21] LABS: MEAN PLATELET VOLUME 7.5 FL (7.4-10.4); RED CELL DISTRIBUTION WIDTH 13.4 % (11.5-14.5)
[2025-05-17 02:33] LABS: CREATININE 0.95 MG/DL (0.40-0.90); TOTAL CARBON DIOXIDE 24.1 MMOL/L (24-32); eCRCL 59 ML/MIN; eGFR 62 ML/MIN
[2025-05-17] MEDS: MESSAGE TO NURSING IV ONE ×3 (03:16→11:59)
--- NOTE | 2025-05-17 06:20 | CARDIOLOGY REPORT ---
APPROVED REPORT EXAM: Comprehensive 2D, Doppler, and color-flow Echocardiogram. Patient Location: 302 Heart Rate: 90 bpm Rhythm: NSR Indications ABNORMAL EKG ELEVATED PRO BNP 1742 HS TROPONIN 61, 70, 68 PULMONARY HTN CONGESTIVE HEART FAILURE CORONARY ARTERY DISEASE COPD EXPERIMENTAL MECHANIC: None PRIOR ECHOCARDIOGRAM: 05/30/2023 [facility] LVEF 70%; sev RV DILITATION WITH MOD/SEV RVF REDUCTION; m LAE; mod ANNA; m AV SCLEROSIS; m PMVL PROLAPSE; m MR; ; mod/sev TR; RVSP 71 mmHg; mod PI 2D Dimensions RVDd 6.2 cm IVSd 1.1 (0.7-1.1cm) LVDd 5.0 cm PWd 1.0 (0.7-1.1cm) IVSs 1.3 (0.8-1.2cm) LVDs 3.6 (2.5-4.0cm) PWs 1.2 (0.8-1.2cm) LVOT Diameter 2.04 (1.8-2.4cm) LVEF(%) 54.1 (>50%) FS (%) 28.1 % SV 64.1 ml CO 5.4 L/min M-Mode Dimensions Left Atrium(MM) 4.65 (2.5-4.0cm) Right Atrium (MM) 6.50 cm Aortic Root 4.09 (2.2-3.7cm) Aortic Cusp Exc 1.52 (1.5-2.0cm) Aortic Valve AoV Peak Roverto. 129.0 cm/s AoV VTI 18.9 cm AO Peak GR. 6.7 mmHg AO Mean GR. 4 mmHg LVOT VTI 12.18 cm LVOT Peak Roverto. 80.4 cm/s JOSH(VTI)/BSA 2.11 cm2/m2 JOSH (VTI) 2.11 cm2 AI P 1/2 Time 404 ms Mitral Valve MV E Velocity 68.2 cm/s MV Peak Gr. 7 mmHg MV DECEL TIME 120 ms MV PHT 40 ms MVA (PHT) 5.50 cm2 MV CYlg069.3 cm/s Pulmonary Valve PAEDP28.26 mmHg Tricuspid Valve TR P. Velocity 407 cm/s RAP ESTIMATE 15 mmHg TR Peak Gr. 66 mmHg RVSP 81 mmHg LEFT VENTRICLE Normal LV size and wall thickness. Overall systolic function is normal. Flattened septum consistent w ith right heart volume/pressure overload. EF 55% RIGHT VENTRICLE RV is severely dilated with moderately reduced function. RVSP is 81 mmHg. ATRIA The left atrium appears normal in size, but difficult to assess due to poor image angulation. Right a trium is severely dilated. AORTIC VALVE Trileaflet AV appears mildly sclerotic without stenosis. Moderate insufficiency. MITRAL VALVE Mitral valve is grossly normal in structure. Trace regurgitation. TRICUSPID VALVE TV appears mildly thickened without stenosis. Severe regurgitation. PULMONIC VALVE Normal PV without stenosis with moderate insufficiency. GREAT VESSELS The aortic root is normal in size. PERICARDIUM Normal pericardium. No effusion. Other Information Study Quality: Adequate Conclusion Normal LV size and wall thickness. Overall systolic function is normal. Flattened septum consistent with right heart volume/pressure overload. EF 55% RV is severely dilated with moderately reduced function. RVSP is 81 mmHg. The left atrium appears normal in size, but difficult to assess due to poor image angulation. Right atrium is severely dilated. Trileaflet AV appears mildly sclerotic without stenosis. Moderate insufficiency. Mitral valve is grossly normal in structure. Trace regurgitation. TV appears mildly thickened without stenosis. Severe regurgitation. Normal pericardium. No effusion.
[2025-05-17] MEDS: ipratropium/albuterol 3ml nebule NEB PRN (08:43)
[2025-05-17] MEDS: aspirin 81mg, enteric-coated 1 TAB TABLET.DR PO SCH (08:51)
--- NOTE | 2025-05-17 09:02 | RADIOLOGY REPORT ---
INDICATION: Hepatic steatosis TECHNIQUE: Multiple real-time sonographic images of the abdomen were obtained. COMPARISON: None FINDINGS: The liver is there heterogeneous in echogenicity. No intrahepatic biliary ductal dilatatio n is noted. Gallbladder or surgically removed. Common bile duct measures 4 mm. The right kidney measures 10cm. No hydronephrosis. The left kidney measures 10cm. No hydronephrosis . The spleen measures 10cm, within normal limits. The echogenicity is within normal limits. The pancreas is not well visualized due to obscuration from bowel gas. The visualized portions of the IVC and aorta are grossly unremarkable. IMPRESSION: Normal exam of the abdomen. Hepatic steatosis
--- NOTE | 2025-05-17 14:25 | PROGRESS NOTE- Residence ---
Progress Note - Resident Providers to CC Resident Creating Document: RICK GUZMAN RES ~ Antibiotic Timeout Antibiotic Ordered?: No Subjective Patient seen and examined at the bedside denied shortness of breaths chest pain or any complaint Objective Vital Signs Date Time Temp Pulse Resp B/P (MAP) Pulse Ox O2 Delivery O2 Flow Rate FiO2 05/17/25 11:00 97.3 80 14 103/80 (88) 94 Room Air 05/17/25 08:50 0.0 05/17/25 08:44 21 Result Diagram: 05/17/25 0205 05/17/25 0205 General: Awake and Alert, no acute distress. HEENT: Conjunctiva pink, Sclera clear, Mucus Membranes moist. Neck: Supple without masses and tenderness. Resp: Lungs clear to auscultation bilaterally. Heart: Regular Rate and rhythm, normal S1 and S2 Abdomen: Soft and non tender Extremities: No cyanosis,clubbing or edema. Skin: Warm and Dry. Neurological: Speech is clear, alert, and oriented x 4, no gross neurological deficits Coagulation Studies Laboratory Tests Test 05/16/25 04:34 05/17/25 09:46 Prothrombin Time 11.7 SECONDS (9.0-12.0) INR International Normalized Ratio 1.2 INR Activated Partial Thromboplast Time 27 SECONDS (22-32) APTT (Heparin Protocol) 52 SECONDS (45-60) Coagulation Comments Plan Plan Patient is a 50-year-old female with a history of CHF, CAD, COPD, chronic hepatitis-C, ARORA, and MANJIT who came to the ED due to shortness of breath. Admitted for evaluation and management of acute on chronic heart failure and NSTEMI versus unstable angina. Chest pain likekly unstable angina Acute on chronic heart failure with preserved ejection fraction and right sided heart failure Methamphetamine induced cardiomyopathy Hyperlipidemia Heart score: 6 Patient is hemodynamically stable with no significant fluid overload Troponins are mildly elevated but stable Chest x-ray today shows mild pulmonary vascular congestion with cardiomegaly Last echocardiogram from 2022 showed EF of 70% with hypokinetic right ventricle Lexiscan from 2022 showed Perfusion defect in the septum at both stress and rest, with greater perfusion defect overall on stress imaging compared to rest. May be partly artifactual, although possibly due to reversible ischemia. Received Coreg in ED, Continue nicotine patch Started on heparin drip in ED Start Lasix 60 mg IV once, then 40 mg IV b.i.d. Lexiscan showed: 1. Perfusion defects in the inferoseptal and anteroseptal estrella on both stress and rest images with extension to portions of the anterior wall on stress only. Possible stress-induced ischemia involving the apical anterior and mid anterior segments. Similar findings are seen on the prior examination from 2022. 2. Left ventricular ejection fraction is 58%. Echo: Normal LV size and wall thickness. Overall systolic function is normal. Flattened septum consistent with right heart volume/pressure overload. EF 55% RV is severely dilated with moderately reduced function. RVSP is 81 mmHg. The left atrium appears normal in size, but difficult to assess due to poor image angulation. Right atrium is severely dilated. Trileaflet AV appears mildly sclerotic without stenosis. Moderate insufficiency. Mitral valve is grossly normal in structure. Trace regurgitation. TV appears mildly thickened without stenosis. Severe regurgitation. Normal pericardium. No effusion. Dr. Galvez was informed, who recommended medical management. Heparin drip stopped today continue Atorvastatin metoprolol and aspirin COPD, not in exacerbation DuoNebs q.4 PRN Chronic hepatitis-C Steatohepatitis no abdominal pain Continue monitoring Positive urine tox for methamphetamine Loader Engineer consulted Code Status: Full code DVT prophylaxis: Heparin subQ Nutrition: Heart healthy diet Prognosis: Guarded Date of Service: May 17, 2025 Billing Provider: NICOLE JORGE MD Common Visit Codes: [id number] INP/OBS CARE(HIGH) RICK GUZMAN, RES May 17, 2025 14:25 NICOLE JORGE MD May 17, 2025 19:43
[2025-05-18] VITALS (8 sets, daily range): BP systolic 107–121; BP diastolic 76–83; PULSE 67–79; RESP 16–22; TEMP 97.1–98; O2SAT 88–95
[2025-05-18 07:27] LABS: MEAN PLATELET VOLUME 7.8 FL (7.4-10.4); RED CELL DISTRIBUTION WIDTH 13.2 % (11.5-14.5)
[2025-05-18] MEDS: mag hydrox/Alum hydrox/simeth 30ml oral suspension PO PRN (07:40)
[2025-05-18 08:02] LABS: CREATININE 1.09 MG/DL (0.40-0.90); TOTAL CARBON DIOXIDE 25.1 MMOL/L (24-32); eCRCL 51 ML/MIN; eGFR 53 ML/MIN
[2025-05-18] MEDS: albuterol 2.5 MG/3 ML nebule NEB PRN (09:19)
[2025-05-18] MEDS ORDERED: IPRA3AMP9 IH (10:21)
[2025-05-18] MEDS ORDERED: IPRA3AMP31 IH (10:24)
[2025-05-18] MEDS ORDERED: ALBU2.5V7 INH (10:26)
[2025-05-18] MEDS ORDERED: LOP12.5T PO (10:26)
[2025-05-18] MEDS ORDERED: SALM50DI2 INH (12:32)
--- NOTE | 2025-05-18 12:39 | DISCHARGE SUMMARY-Residence ---
Discharge Summary Providers to CC Resident Creating Document: RICK GUZMAN RES ~ Discharge Summary Admission Diagnosis: CHF exacerbation/NSTEMI Hospital Course DATE OF ADMISSION: 05/16/25 DATE OF DISCHARGE:05/18/25 Hospital course: Patient is a 50-year-old female with a history of CHF, CAD, COPD, chronic hepatitis-C, ARORA, and MANJIT who came to the ED due to shortness of breath. Admitted for evaluation and management of acute on chronic heart failure and unstable angina, patient admitted with following workup and yossi gnosis Chest pain, likekly unstable angina Acute on chronic heart failure with preserved ejection fraction and right sided heart failure Methamphetamine induced cardiomyopathy Hyperlipidemia Type 2 demand ischemia Heart score: 6, Patient is hemodynamically stable with no significant fluid overload Troponins are mildly elevated but stable Chest x-ray today shows mild pulmonary vascular congestion with cardiomegaly Last echocardiogram from 2022 showed EF of 70% with hypokinetic right ventricle Lexiscan from 2022 showed Perfusion defect in the septum at both stress and rest, with greater perfusion defect overall on stress imaging compared to rest. May be partly artifactual, although possibly due to reversible ischemia. Received Coreg in ED, Continue nicotine patch Started on heparin drip in ED initially and DC it the day after Start Lasix 60 mg IV once, then 40 mg IV b.i.d. Lexiscan showed: 1. Perfusion defects in the inferoseptal and anteroseptal estrella on both stress and rest images with extension to portions of the anterior wall on stress only. Possible stress-induced ischemia involving the apical anterior and mid anterior segments. Similar findings are seen on the prior examination from 2022. 2. Left ventricular ejection fraction is 58%. Echo: Normal LV size and wall thickness. Overall systolic function is normal. Flattened septum consistent with right heart volume/pressure overload. EF 55% RV is severely dilated with moderately reduced function. RVSP is 81 mmHg. The left atrium appears normal in size, but difficult to assess due to poor image angulation. Right atrium is severely dilated. Trileaflet AV appears mildly sclerotic without stenosis. Moderate insufficiency. Mitral valve is grossly normal in structure. Trace regurgitation. TV appears mildly thickened without stenosis. Severe regurgitation. Normal pericardium. No effusion. Dr. Galvez was informed, who recommended medical management. continue Atorvastatin and aspirin and we started metoprolol COPD, not in exacerbation Spiriva and albuterol Hemoglobin was 19 today patient was not hypoxic in room air, need to do sleep study as an outpatient We decreased the dose of Lasix today due to hemoconcentration Chronic hepatitis-C Steatohepatitis no abdominal pain Continue monitoring Positive urine tox for methamphetamine Manager Talent consulted Labs: WBC 6.8, RBC 5.7, hemoglobin 19, platelets 213, sodium 134, potassium 3.7, BUN 31, creatinine 1.09, AST 92 ALT 93 alkaline phosphatase 170 Physical exam on discharge day, General: Awake and Alert, no acute distress. HEENT: Conjunctiva pink, Sclera clear, Mucus Membranes moist. Neck: Supple without masses and tenderness. Resp: Coarse crackle improved Heart: Regular Rate and rhythm, normal S1 and S2 Abdomen: Soft and non tender Extremities: No cyanosis,clubbing or edema. Skin: Warm and Dry. Neurological: Speech is clear, alert, and oriented x 4, no gross neurological deficits Patient worked with physical therapy and O2 saturation did not dropped, she discharged home with following instruction: please follow up with your PCP in 1 week, repeat BNP in one week. follow-up to geothermal plant manager. Admitted to avoid smoking marijuana cigarettes and taking any me thamphetamine. Follow-up with your berry picker machine operator. Return to ED if your symptoms getting worse. Discharge Diagnosis\Comment: Unstable angina Acute on chronic heart failure with preserved ejection fraction, pulmonary hypertension Methamphetamine induced cardiomyopathy Hyperlipidemia COPD Chronic hepatitis C Steatohepatitis Operations\Procedures: None Consultants: Dr. Galvez on-call berry picker machine operator Complications: None Condition on DC: Stable New Medications: Albuterol Sulfate (Albuterol Sulfate) 2.5 Mg/3 Ml Vial.neb 1 VIAL INH Q4HPRN PRN for wheezing, #150 ML 0 Refills Ipratropium/Albuterol Sulfate (Duoneb 2.5-0.5 Mg/3 Ml Soln) 0.5 Mg-3 Mg (2.5 Mg Base)/3 Ml Ampul.neb 3 ML IH QID, #1 ML Salmeterol Xinafoate* (Serevent Diskus*) 50 Mcg Disk.w.dev 1 PUFFS INH Q12H for 30 Days, #1 EA Metoprolol Tartrate (Lopressor tablet) 25 Mg Tablet 12.5 MG PO BID for 30 Days, #60 TAB Hold for SBP below 100mm Hg Hold for Heart Rate below 60. Continued Medications: albuterol inhaler (Pro-Air Inhaler) 8.5 Gm Inhaler 1-2 PUFFS PO Q4H PRN for shortness of breath, #1 INH Aspirin (Ecotrin*) 81 Mg Tablet.dr 1 TAB PO DAILY for 30 Days, #30 TAB.SR Atorvastatin Calcium (Atorvastatin Calcium) 20 Mg Tablet 20 MG PO DAILY for 30 Days, #30 TAB Famotidine (Pepcid) 20 Mg Tablet 1 TAB PO Q12H for 30 Days, #60 TAB Furosemide (Lasix) 20 Mg Tablet 1 TAB PO DAILY for 30 Days, #30 TAB Nitroglycerin SL* (Nitrostat SL*) 0.4 Mg Tablet 0.4 MG SL Q5MIN PRN for chest pain for 30 Days, #25 TAB Discontinued Medications: Lactobacillus Rhamnosus (Culturelle) 1 Each Capsule 61354 MMU PO Q12H for 15 Days, CAP Prednisone* (Prednisone*) 5 Mg Tablet 1 TAB PO DAILY for 30 Days, #30 TAB Tiotropium [place] (Spiriva) 18 Mcg Cap.w.dev 1 CAP INH DAILY for 30 Days, #30 CAP 0 Refills Discharge Summary: See hospital course *Problems/Diagnosis: (1) Cardiomyopathy Status: Acute Total Time Spent on D/C: > 30 Minutes Date of Service: May 18, 2025 Billing Provider: NICOLE JORGE MD Common Visit Codes: [id number] DISCH DAY >30min RICK GUZMAN, RES May 18, 2025 12:39 NICOLE JORGE MD May 18, 2025 19:56
[2025-05-18] MEDS ORDERED: POTA-205 PO (12:45)
[2025-05-18] MEDS ORDERED: FURO-150 PO (12:45)
[2025-05-19 05:13] LABS: THYROXINE (T4) 7.4 ug/dL (4.5-12.0); TRIIODOTHYRONINE (T3) 142.0 ng/dL (71-180)
[2025-05-19] MEDS ORDERED: ipratropium 0.5 MG/2.5ML nebule IH SCH (08:00)
[2025-05-20] MEDS ORDERED: SALM50DI2 INH (15:28)
[2025-05-20] MEDS ORDERED: POTA-205 PO (15:28)
[2025-05-20] MEDS ORDERED: ALBU2.5V7 INH (15:28)
[2025-05-20] MEDS ORDERED: FURO-150 PO (15:28)
[2025-05-20] MEDS ORDERED: LOP12.5T PO (15:28)
[2025-05-20] MEDS ORDERED: IPRA3AMP31 IH (15:28)
== END 2025-05-18 18:15 | disposition home or self-care (01) | DRG 194 ==
LOC: ER 00:05 → ED HOLD 04:47 → PCU 3S 14:52
PROVIDERS: ADMIT Internal Medicine Critical Care Medicine; ATTEND Internal Medicine
PROC: 4A02XM4 Measurement of Cardiac Total Activity, External Approach (ICD-10-PCS; principal; 2025-05-16)
PROC: 3E033HZ Introduction of Radioactive Substance into Peripheral Vein, Percutaneous Approach (ICD-10-PCS; 2025-05-16)
DX: I11.0 Hypertensive heart disease with heart failure (principal); I21.4 Non-ST elevation (NSTEMI) myocardial infarction; I42.7 Cardiomyopathy due to drug and external agent; I25.110 Atherosclerotic heart disease of native coronary artery with unstable angina pectoris; I50.33 Acute on chronic diastolic (congestive) heart failure; F15.10 Other stimulant abuse, uncomplicated; J44.9 Chronic obstructive pulmonary disease, unspecified; Z79.82 Long term (current) use of aspirin; Z79.899 Other long term (current) drug therapy; Z90.49 Acquired absence of other specified parts of digestive tract
CPT/HCPCS: 36415; 71045; 76700; 78452; 80048; 80053; 80061; 80320; 82248; 83036; 83690; 83735; 83880; 84132; 84436; 84443; 84450; 84460; 84480; 84484; 85025; 85610; 85730; 87081; 93005; 93017; 93306; 94640; 94760; 99291; A4615; A6449; A9500; G0378; J1644; J1938; J2785